=== PATIENT | male | born 1945 | race Caucasian/White ===

== ENCOUNTER 2019-01-06 04:14 | Inpatient (IN) | payer MEDICARE, BC ==
[~2019-01-06] VITALS: Ht 170.2 cm; Wt 110.0 kg
[~2019-01-06 04:14] MED LIST: ALBU90OI61 INH; AMIT25 PO; ANDRODERM1 EAC1 TD; ANDROGEL; ASCO500; ASPI325; ASPI325 PO; ATEN50; BUPR100 PO; BUPR150ERA; CALCAVITDA PO; CYAN1000 PO; DIPH50 PO; ESCI10 PO; Elemental Calc600 MG PO; FENO145 PO; FLUO.05TO; FURO40 PO; Fluocinonide15 GM TOP; GABA300 PO; GEMF600; GEMF600 PO; GLIM4; GLIM4 PO; HYDACE5 PO; HYDCOR10; Hair, Skin & N1 EACH PO; Humalog Mi100 UNIT/4 SC; INSLI100I; INSLIS75I; INSUASPI SC; INSULANI; INSULANI SC; INSULANPEN SC; IRBE150 PO; L-THYROXINE PO; LEVFLO250 PO; LEVSOD100 PO; LEVSOD112; LISPRO; LOPE2C PO; LOVA40 PO; METF500; MORP30ER PO; MULVITMIND PO; ONDA4ODT MM; OXYC15ER PO; OXYC1TAB11 PO; POTA10T PO; PRED5; PRED5 PO; PREG150 PO; PROM25S PR; RANI150 PO; TOUJEO SOL300 UNIT/1; TRAZ150T57 PO; VALS80; VITAMIN D5000 UNI1 PO; Zofran Odt4 MG SL; Zovirax800 MG PO; [UNRECOGNIZED DRUG - OTHER]
[2019-01-06 04:34] LABS: BASOPHILS ABSOLUTE AUTO 0.19 K/mm3 (0.00-0.23); BASOPHILS PERCENT AUTO 1 % (0-2); EOSINOPHILS ABSOLUTE AUTO 0.39 K/mm3 (0.00-0.68); EOSINOPHILS PERCENT AUTO 3 % (0-6); Hematocrit 48.5 % (37.0-53.0); Hemoglobin 15.5 g/dL (13.5-17.5); Mean Corpuscular HGB 27.7 pg (26.0-34.0); Mean Corpuscular Volume 87 fL (80-100); Mean Platelet Volume 8.8 fL (9.1-12.4); Platelet Count 279 K/mm3 (150-400); RDW Coefficient Variation 12.8 % (11.7-14.2); RDW Standard Deviation 40.6 fL (35.1-46.3); White Blood Cell Count 15.91 K/mm3 (4.00-11.30)
[2019-01-06 04:39] LABS: IMMATURE GRAN ABSOLUTE AUTO 0.06 K/mm3 (0.00-0.10); IMMATURE GRAN PERCENT AUTO 0 % (0-1); LYMPHOCYTES ABSOLUTE AUTO 7.31 K/mm3 (0.84-5.20); LYMPHOCYTES PERCENT AUTO 46 % (21-46); MONOCYTES ABSOLUTE AUTO 1.65 K/mm3 (0.16-1.47); MONOCYTES PERCENT AUTO 10 % (4-13); NEUTROPHILS ABSOLUTE AUTO 6.31 K/mm3 (1.96-9.15); NEUTROPHILS PERCENT AUTO 40 % (41-73)
[2019-01-06 04:40] LABS: Calcium, Ionized (POC) 1.09 mmol/L (1.10-1.46); Chloride (POC) 103 mmol/L (98-108); Creatinine (POC) 1.8 mg/dL (0.8-1.3); Glucose (ISTAT POC) 201 mg/dL (70-99); Potassium (POC) 3.8 mmol/L (3.5-5.5); Sodium (POC) 138 mmol/L (135-148); Total CO2 (POC) 24 mmol/L (21-32)
[2019-01-06] MEDS ORDERED: AMIT25 PO (04:45)
[2019-01-06] MEDS ORDERED: ERGO400 PO (04:47)
[2019-01-06] MEDS ORDERED: FURO40 PO (04:47)
[2019-01-06] MEDS ORDERED: GLIM4 PO (04:48)
[2019-01-06] MEDS ORDERED: SOLU-CORTE100 MG/2 M IM (04:49)
[2019-01-06] MEDS ORDERED: IRBE150 PO (04:50)
[2019-01-06 04:51] LABS: PCO2 Arterial 43.2 mmHg (35-45); PO2 Arterial 67.4 mmHg (80-100); pH Blood Arterial 7.38 (7.35-7.45)
[2019-01-06] MEDS ORDERED: SUBOXONE 4 MG-1 EACH (04:51)
[2019-01-06] MEDS ORDERED: NAPR500ERA PO (04:52)
[2019-01-06 04:53] LABS: Alanine Aminotransfer (ALT/SGP 31 U/L (12-78); Albumin, Blood 2.9 g/dL (3.4-5.0); Albumin/Globulin Ratio 0.7 (0.8-1.8); Alk Phos 81 U/L (50-136); Anion Gap 11 mmol/L (6-16); Aspartate Aminotrans (AST/SGOT 22 U/L (12-37); Bilirubin, Total 0.8 mg/dL (0.1-1.0); Blood Urea Nitrogen 13 mg/dL (8-24); CO2, Blood 24 mmol/L (21-32); Calcium, Blood 8.8 mg/dL (8.5-10.1); Chloride, Blood 105 mmol/L (98-108); Creatinine, Blood 1.63 mg/dL (0.60-1.20); Globulin, Blood 4.2 g/dL (2.2-4.0); Glomerular Filtration Rate 45 (60-); Glucose, Blood 194 mg/dL (70-99); Potassium, Blood 3.9 mmol/L (3.5-5.5); Sodium, Blood 140 mmol/L (136-145); Total Protein, Blood 7.1 g/dL (6.4-8.2); Troponin I <0.015 ng/mL (0.000-0.040)
[2019-01-06] MEDS ORDERED: Gas-X125 MG PO (14:16)
--- NOTE | 2019-01-06 19:41 | NUR ---
ADMIT NOTE/SHIFT SUMMARY PT TO ROOM AT 0730. PT AND SPOUSE ORIENTED TO ROOM AND CALL LIGHT. PT/SPOUSE EDUCATED ON FALL RISK AND HR ROUNDING. SPOUSE REPORTS ADRIANNA HAS BEEN TAKING ANTIBIOTICS AT HOME FOR RLE CELLULITIS, REDNESS 3RD AND 4TH TOES, PICTURES TAKEN. PT HAS SCATTERED SCABS ON BLE, PICTURES TAKEN. PT A&Ox3, CONFUSED AND FORGETFUL AT TIMES. CONCRETE. FLAT AFFECT. PT REPORTS CHRONIC BACK PAIN "NOT TOO BAD", MEDICATED x1 WITH SUBOXONE. PT SOB WITH EXERTION, ADMITTED TO UNIT ON 3L O2 VIA NC, SPOUSE BROUGHT IN HOME BIPAP AND HAS BEEN WHERE T/O SHIFT. LS DIM IN BASES. AT REST, WITH BIPAP, BREATHING EVEN AND UNLABORED, SPO2 >92%. PT DENIES NAUSEA, SPOUSE REPORTS HE HAS EATEN MORE TODAY THEN THE LAST COUPLE OF DAYS. PT HAS 3,120 CC OF NS FOR SEPSIS PROTOCOL, CLARIFIED ORDER WITH DR ROA, OK TO INCLUDING 1L NS GIVEN UB ED IN TOTAL. PT RECEIVING IV ANTIBIOTICS. PT DENIES N/T DURING SHIFT ASSESSMENTS, STATING "IT COMES AND GOES". VSS. NO OTHER ACUTE CHANGES NOTED DURING SHIFT. REPORT GIVEN TO ONCOMING RN
[2019-01-07 03:52] LABS: BASOPHILS ABSOLUTE AUTO 0.09 K/mm3 (0.00-0.23); BASOPHILS PERCENT AUTO 1 % (0-2); EOSINOPHILS ABSOLUTE AUTO 0.24 K/mm3 (0.00-0.68); EOSINOPHILS PERCENT AUTO 2 % (0-6); Hematocrit 40.8 % (37.0-53.0); Hemoglobin 12.8 g/dL (13.5-17.5); IMMATURE GRAN ABSOLUTE AUTO 0.05 K/mm3 (0.00-0.10); IMMATURE GRAN PERCENT AUTO 0 % (0-1); LYMPHOCYTES ABSOLUTE AUTO 2.49 K/mm3 (0.84-5.20); LYMPHOCYTES PERCENT AUTO 22 % (21-46); MONOCYTES ABSOLUTE AUTO 1.04 K/mm3 (0.16-1.47); MONOCYTES PERCENT AUTO 9 % (4-13); Mean Corpuscular HGB 27.9 pg (26.0-34.0); Mean Corpuscular HGB Conc 31.4 g/dL (31.5-36.5); Mean Corpuscular Volume 89 fL (80-100); Mean Platelet Volume 8.7 fL (9.1-12.4); NEUTROPHILS ABSOLUTE AUTO 7.32 K/mm3 (1.96-9.15); NEUTROPHILS PERCENT AUTO 65 % (41-73); Platelet Count 213 K/mm3 (150-400); RDW Coefficient Variation 13.2 % (11.7-14.2); RDW Standard Deviation 43.1 fL (35.1-46.3); Red Blood Cell Count 4.59 M/mm3 (4.30-5.90); White Blood Cell Count 11.23 K/mm3 (4.00-11.30)
[2019-01-07 04:09] LABS: Bun/Creatinine Ratio 8.8 (12.0-20.0); Calcium, Blood 7.8 mg/dL (8.5-10.1); Creatinine, Blood 2.27 mg/dL (0.60-1.20); Potassium, Blood 5.1 mmol/L (3.5-5.5)
--- NOTE | 2019-01-07 08:00 | NUR ---
pt laying in bed with cpap in place on cpap from home, at bedside. he wakes easily. takes po medications without diff, a/ox3, but has periodic confusion, cooperative with care, follows commands well, lungs are clear in [place], dim in bases, resp even and unlabored, no cough noted, hrr, tele in place running sr per monitor, see strip, trace edema noted to b/l le, ppp+1, cap refill <3sec, vs stable, afebrile, iv site is clear and patent, infusing ns as ordered, btx4, abd flat soft nontender, voids via urinal and has attends in place, skin has scabs to b/l le, pix in chart, lorenzo obrien, call light in reach.
[2019-01-07 09:30] LABS: Vancomycin, Trough 12.4 ug/mL (5.0-10.0)
--- NOTE | 2019-01-07 11:39 | NUR ---
pt resting in bed with cpap in place, napping unless disturbed. states he's doing ok. at bedside, call light in reach.
--- NOTE | 2019-01-07 18:20 | NUR ---
PT UP TO CHAIR FOR A WHILE TODAY, HAS SLEPT MOST OF THE DAY, STATES HE'S FEELING BETTER, NO FURTHER CHANGES THIS SHIFT, CALL LIGHT IN REACH.
[2019-01-08 03:50] LABS: BASOPHILS ABSOLUTE AUTO 0.09 K/mm3 (0.00-0.23); BASOPHILS PERCENT AUTO 1 % (0-2); EOSINOPHILS ABSOLUTE AUTO 0.34 K/mm3 (0.00-0.68); EOSINOPHILS PERCENT AUTO 4 % (0-6); Hematocrit 39.4 % (37.0-53.0); Hemoglobin 12.3 g/dL (13.5-17.5); IMMATURE GRAN ABSOLUTE AUTO 0.01 K/mm3 (0.00-0.10); IMMATURE GRAN PERCENT AUTO 0 % (0-1); LYMPHOCYTES ABSOLUTE AUTO 2.67 K/mm3 (0.84-5.20); LYMPHOCYTES PERCENT AUTO 28 % (21-46); MONOCYTES ABSOLUTE AUTO 0.77 K/mm3 (0.16-1.47); MONOCYTES PERCENT AUTO 8 % (4-13); Mean Corpuscular HGB Conc 31.2 g/dL (31.5-36.5); Mean Corpuscular Volume 90 fL (80-100); Mean Platelet Volume 8.6 fL (9.1-12.4); NEUTROPHILS PERCENT AUTO 60 % (41-73); Platelet Count 222 K/mm3 (150-400); RDW Coefficient Variation 13.2 % (11.7-14.2); RDW Standard Deviation 43.3 fL (35.1-46.3); White Blood Cell Count 9.58 K/mm3 (4.00-11.30)
[2019-01-08 04:06] LABS: Bun/Creatinine Ratio 9.5 (12.0-20.0); Calcium, Blood 8.1 mg/dL (8.5-10.1); Creatinine, Blood 2.01 mg/dL (0.60-1.20); Potassium, Blood 4.7 mmol/L (3.5-5.5)
--- NOTE | 2019-01-08 04:43 | NUR ---
SHIFT SUMMARY PT A&O X4 T/O SHIFT. PT STS HE FELT HE IS "CLEARING UP" IN REGARDS TO MENTATION. SBA WITH FWW TO BSC AND TO USE URNINAL. CONT. OX IN PLACE WITH O2 SATS GREATER THEN 92%; PT DENIES SOB. CPAP WITH 3L O2 BLEED WHILE ASLEEP. AREA OF REDNESS TO R FOOT OUTLINED WITH DATE AND TIME. PT REQUESTED REMOVAL OF SCD'S; EDUCATION ON DVT PREVENTION, PT STS UNDERSTANDING. IV GTT PER EMAR ORDER. SIDE RAILS X3 FOR SAFETY. CALL LIGHT IN REACH; PT DEMONSTRATES USE. WCTM UNTIL REPORT TO DAY SHIFT RN.
--- NOTE | 2019-01-08 11:13 | NUR ---
PT LAYING IN BED AWAKE A/OX3, IN ROOM, PLEASANT AND COOPERATIVE WITH CARE, FOLLOWS COMMANDS WELL, DENIES PAIN, STATES HE'S FEELING PRETTY GOOD, LUNGS ARE CLEAR T/O, RESP EVEN AND UNLABORED, IS ON R/A WHEN OFF CPAP, SATS REMAIN IN 90'S, NO COUGH NOTED, HRR, TELE IN PLACE RUNNING SR PER MONITOR, SEE STRIP, TRACE TO +1 EDEMA NOTED TO B/L LE, PPP FAINT, CAP REFILL <3SEC, VS STABLE AFEBRILE, IV SITE IS CLEAR AND PATENT, BTX4, ABD FLAT SOFT NONTENDER, VOIDS VIA URINAL, AND HAS ATTENDS IN PLACE, SKIN HAS RED TOES TO RIGHT FOOT, LATERAL ASPECT, IS OUTLINED, SCABS TO B/L ALAN CAUSEY, WEAK, SLOAN, CALL LIGHT IN REACH.
[2019-01-08] MEDS ORDERED: AMIT50 PO (14:30)
[2019-01-08] MEDS ORDERED: SUBOXONE 8 MG-1 EACH SL (14:31)
[2019-01-08] MEDS ORDERED: FURO40 PO (14:33)
[2019-01-08] MEDS ORDERED: AMOCLA875 PO (14:42)
[2019-01-08] MEDS ORDERED: Bactrim Ds Tab1 EACH PO (14:58)
--- NOTE | 2019-01-08 15:30 | NUR ---
PT WAS SEEN BY DR. ROA, SHE DISCHARGED HIM TO HOME, WENT OVER DISCHARGE INSTRUCTIONS WITH THEM THEY VERBALIZED UNDERSTANDING, IV REMOVED INTACT, NEW SCRIPT CALLED INTO [facility]. LEFT VIA WHEELCHAIR WITH ASSOCIATE PROFESSOR OF VIOLIN AND IN ATTENDENCE. THEY HAVE ALL BELONGINGS.
== END 2019-01-08 15:32 | disposition home or self-care (01) | DRG 871 ==
LOC: ER 04:14 → PCU 05:04
PROVIDERS: Emergency Medicine; Hospitalist; ADMIT Family Medicine
DX: A41.9 Sepsis, unspecified organism (principal); G93.41 Metabolic encephalopathy; L03.115 Cellulitis of right lower limb; E23.0 Hypopituitarism; N17.9 Acute kidney failure, unspecified; R65.20 Severe sepsis without septic shock; R09.02 Hypoxemia; G47.33 Obstructive sleep apnea (adult) (pediatric); E11.65 Type 2 diabetes mellitus with hyperglycemia; E11.40 Type 2 diabetes mellitus with diabetic neuropathy, unspecified; E78.5 Hyperlipidemia, unspecified; Z88.5 Allergy status to narcotic agent; Z79.84 Long term (current) use of oral hypoglycemic drugs; Z79.1 Long term (current) use of non-steroidal anti-inflammatories (NSAID); Z79.82 Long term (current) use of aspirin; Z79.4 Long term (current) use of insulin; Z79.52 Long term (current) use of systemic steroids; Z79.899 Other long term (current) drug therapy
CPT/HCPCS: 36415; 36600; 71045; 80047; 80048; 80053; 80202; 82803; 82947; 83605; 84484; 85014; 85025; 87040; 93005; 93010; 94640; 94762; 96365; 96367; 96375; 99285-25; A9270; J1720; J1817; J2543; J3370; J7030; J7050; J7512

== ENCOUNTER 2020-03-10 20:41 | Inpatient (IN) | payer MEDICARE, BC ==
[~2020-03-10] VITALS: Ht 175.3 cm; Wt 112.2 kg
[~2020-03-10 20:41] MED LIST changes: +AMIT50 PO; +AMOCLA875 PO; +ANDRODERM1 EAC3 TD; +BENADRYL25 MG PO; +BUPRENORPHINE HC2 MG SL; +Bactrim Ds Tab1 EACH PO; +ERGO400 PO; +EUTHYROX175 MCG PO; +FLUO.01TC; +Gas-X125 MG PO; +HUMALOG100 UNIT/1; +LOSA50 PO; +Lovastatin20 MG PO; +MULTIVITAMINS1 EAC3; +NAPR500ERA PO; +ONDA4 SL; +PRED1 PO; +PROAIR DIGIHAL90 MCG PO; +Ranitidine HCl150 M1 PO; +SOLU-CORTE100 MG/2 M IM; +SUBOXONE 4 MG-1 EACH; +SUBOXONE 8 MG-1 EACH SL; +TRESIBA FL200 UNIT/2 SC; +Vitamin D2000 UNIT PO; +[UNRECOGNIZED DRUG - OTHER]
[2020-03-10 21:05] LABS: Source, Urine Catheter
[2020-03-10 21:13] LABS: Appearance, Urine Hazy (Clear); Bilirubin, Urine Neg (Neg); Blood, Urine 2+ (Neg); Color, Urine Yellow (P-Yellow); Glucose Qualitative, Urine Neg (Neg); Ketones, Urine 1+ (Neg); Leukocyte Esterase, Urine 3+ (Neg); Nitrite, Urine Neg (Neg); Protein, Urine 2+ (Neg); Specific Gravity, Urine 1.015 (1.003-1.022); Urobilinogen, Urine NORM (Normal)
[2020-03-10 21:15] LABS: PCO2 Arterial 47.6 mmHg (35-45); PO2 Arterial 58.7 mmHg (80-100); pH Blood Arterial 7.32 (7.35-7.45)
[2020-03-10 21:21] LABS: BASOPHILS ABSOLUTE AUTO 0.18 K/mm3 (0.00-0.23); BASOPHILS PERCENT AUTO 1 % (0-2); EOSINOPHILS ABSOLUTE AUTO 0.47 K/mm3 (0.00-0.68); EOSINOPHILS PERCENT AUTO 4 % (0-6); Hematocrit 51.4 % (37.0-53.0); Hemoglobin 15.6 g/dL (13.5-17.5); IMMATURE GRAN ABSOLUTE AUTO 0.08 K/mm3 (0.00-0.10); IMMATURE GRAN PERCENT AUTO 1 % (0-1); LYMPHOCYTES ABSOLUTE AUTO 5.73 K/mm3 (0.84-5.20); LYMPHOCYTES PERCENT AUTO 44 % (21-46); MONOCYTES ABSOLUTE AUTO 1.34 K/mm3 (0.16-1.47); MONOCYTES PERCENT AUTO 10 % (4-13); Mean Corpuscular HGB 25.6 pg (26.0-34.0); Mean Corpuscular HGB Conc 30.4 g/dL (31.5-36.5); Mean Corpuscular Volume 84 fL (80-100); Mean Platelet Volume 8.7 fL (9.1-12.4); NEUTROPHILS ABSOLUTE AUTO 5.37 K/mm3 (1.96-9.15); NEUTROPHILS PERCENT AUTO 41 % (41-73); Platelet Count 334 K/mm3 (150-400); RDW Coefficient Variation 13.1 % (11.7-14.2); RDW Standard Deviation 40.3 fL (35.1-46.3); Red Blood Cell Count 6.09 M/mm3 (4.30-5.90); White Blood Cell Count 13.17 K/mm3 (4.00-11.30)
[2020-03-10 21:38] LABS: U Amphetamine Screen Not Detected; U Barbituate Screen Not Detected; U Benzodiazapine Screen Not Detected; U Buprenorphine Screen DETECTED; U Cannabinoids Screen Not Detected; U Cocaine Screen Not Detected; U Methadone Screen Not Detected; U Methamphetamine Screen Not Detected; U Opiates Screen Not Detected; U Oxycodone Screen Not Detected; U Phencyclidine Screen Not Detected; U Propoxyphene Screen Not Detected
[2020-03-10 21:41] LABS: Bacteria Rare /hpf; Red Blood Cells, Urine 0-2 /hpf (0-2); Squamous Epithelial Cells Not Seen /hpf (Few); White Blood Cells, Urine TNTC /hpf (0-5); Yeast/Fungi Urine Mod /hpf
[2020-03-10 21:51] LABS: Alanine Aminotransfer (ALT/SGP 28 U/L (12-78); Albumin, Blood 3.2 g/dL (3.4-5.0); Albumin/Globulin Ratio 0.7 (0.8-1.8); Alk Phos 106 U/L (50-136); Anion Gap 8 mmol/L (6-16); Aspartate Aminotrans (AST/SGOT 23 U/L (12-37); Bilirubin, Total 0.5 mg/dL (0.1-1.0); Blood Urea Nitrogen 10 mg/dL (8-24); Bun/Creatinine Ratio 6.1 (12.0-20.0); CO2, Blood 26 mmol/L (21-32); Chloride, Blood 107 mmol/L (98-108); Creatinine, Blood 1.63 mg/dL (0.60-1.20); Ethanol (Alcohol), Blood, Med <3 mg/dL; Free Thyroxine 0.72 ng/dL (0.70-1.60); Globulin, Blood 4.6 g/dL (2.2-4.0); Glomerular Filtration Rate 44 (60-); Glucose, Blood 214 mg/dL (70-99); Potassium, Blood 3.6 mmol/L (3.5-5.5); Sodium, Blood 141 mmol/L (136-145); Total Protein, Blood 7.8 g/dL (6.4-8.2); Triiodothyronine, Free 1.77 pg/mL (2.18-3.98); Troponin I <0.015 ng/mL (0.000-0.040)
[2020-03-11 03:10] LABS: BASOPHILS PERCENT AUTO 2 % (0-2); EOSINOPHILS ABSOLUTE AUTO 0.53 K/mm3 (0.00-0.68); EOSINOPHILS PERCENT AUTO 4 % (0-6); Hematocrit 48.7 % (37.0-53.0); Hemoglobin 14.8 g/dL (13.5-17.5); IMMATURE GRAN ABSOLUTE AUTO 0.07 K/mm3 (0.00-0.10); IMMATURE GRAN PERCENT AUTO 1 % (0-1); LYMPHOCYTES ABSOLUTE AUTO 4.54 K/mm3 (0.84-5.20); LYMPHOCYTES PERCENT AUTO 36 % (21-46); MONOCYTES ABSOLUTE AUTO 1.49 K/mm3 (0.16-1.47); MONOCYTES PERCENT AUTO 12 % (4-13); Mean Corpuscular HGB 25.9 pg (26.0-34.0); Mean Corpuscular HGB Conc 30.4 g/dL (31.5-36.5); Mean Corpuscular Volume 85 fL (80-100); Mean Platelet Volume 8.9 fL (9.1-12.4); NEUTROPHILS ABSOLUTE AUTO 5.81 K/mm3 (1.96-9.15); NEUTROPHILS PERCENT AUTO 46 % (41-73); Platelet Count 273 K/mm3 (150-400); RDW Coefficient Variation 13.2 % (11.7-14.2); RDW Standard Deviation 40.8 fL (35.1-46.3); Red Blood Cell Count 5.72 M/mm3 (4.30-5.90); White Blood Cell Count 12.64 K/mm3 (4.00-11.30)
[2020-03-11 03:27] LABS: Bun/Creatinine Ratio 6.7 (12.0-20.0); Calcium, Blood 9.1 mg/dL (8.5-10.1); Creatinine, Blood 1.63 mg/dL (0.60-1.20); Potassium, Blood 3.6 mmol/L (3.5-5.5)
--- NOTE | 2020-03-11 06:44 | NUR ---
SHIFT SUMMARY PT ARRIVED TO UNIT IN STABLE CONDTION. FIRST BAG OF LR INFUSING. PT LETHARGIC AND NOT ANSWERING QUESTIONS WELL, HAD TO KEEP WAKING UP PT TO TALK AND ANSWER QUESTIONS. PT BECAME MORE RESPONSIVE T/O THE NIGHT AND WAS BETTER ABLE TO ANSWER QUESTIONS. BP RANGE 130-149 SYSTOLIC WITH HR ABOVE 100. PT WAS OFF O2 UPON ARRIVAL, TRANSFERED SELF TO BED, O2 SATS IN THE LOW 90'S DROPPING INTO THE 80'S. PT PLACED ON 2 LPM NC THEN ON HOME CPAP WITH 02 SATS STEADY IN THE MID 90'S. LACTIC ACID UPON ARRIVAL WAS 3.2, MORNING LABS SHOWED LACTIC ACID AT 3.1. PT WAS NAUSEOUS UPON ARRIVAL BUT DENIED ZOFRAN, DID NOT VOMIT. INFUSED 2200ML OF LR AND PT HAS BEEN NPO T/O SHIFT. PT STATED LIMITED FEELING AND TINGLING IN LOWER LIMBS DUE TO DIABETIC NEUROPATHY. PT WAS A POOR HISTORIAN FOR PAST MEDICAL HISTORY BUT WAS SEEMINGLY MORE ALERT BY END OF SHIFT. PT STABLE, WILL CONTINUE TO MONITOR UNTIL SHIFT CHANGE.
[2020-03-11 17:35] LABS: PCO2 Arterial 46.2 mmHg (35-45); PO2 Arterial 76.7 mmHg (80-100); pH Blood Arterial 7.35 (7.35-7.45)
--- NOTE | 2020-03-11 18:23 | NUR ---
PATIENT SLEPT FOR MOST OF SHIFT, REFUSED LUNCH. PATIENT WOKE SHORTLY BEFORE DINNER, ORIENTED TO SELF ONLY. PATIENT HAD NASAL CPAP APPLIED FOR ENTIRE SHIFT. PATIENT STARTED DRY HEAVING, PATIENT REQURIED REDIRECTION IN ORDER TO PREVENT FALL, BED ALARM REMAINS ON WHEN PATIENT IN BED LAYING OR SITTING. PATIENT'S AT BEDSIDE. PATIENT ABLE TO HAVE SMALL BOWEL MOVEMENT AT BEDSIDE COMMODE. PATIENT'S O2 NEEDS INCREASED FROM MAINTAINING O2 SATS LOW 90S AT 7L BLEED IN, AFTER WAKING AND AT TIME OF CONFUSION EPISODE PATIENT DESATTED TO MID 80S. BLEED IN TURNED UP TO 9L TO MAINTAIN O2 SAT OF 88-91%. DR. ASENCIO NOTIFIED, ORDERS FOR ABG GIVEN. PATIENT'S CO2 AND O2 IMPROVED SINCE ADMISSION.
--- NOTE | 2020-03-11 19:46 | NUR ---
PT REFUSING TO GO TO CT SCAN AT THIS TIME. EDUCATION PROVIDED. PT STILL REFUSING.
--- NOTE | 2020-03-11 22:19 | NUR ---
ASSUMED CARE @ 1900 PT RESTING IN BED, USING CPAP WITH 7L O2 AT START OF SHIFT. RESPONDING TO VERBAL STIMULI AT TIMES, OTHER TIMES DOES NOT ANSWER QUESTIONS. ALERT AT TIMES, OTHERWISE HAS BEEN LETHARGIC. PT SWITCHED TO O2 NC FOR CT SCAN, BUT THEN REFUSED CT SCAN. WHEN ASKED WHY, PATIENT SAID HE "DOESN'T THINK HE WILL FIT IN THE CT MACHINE AND DOES NOT WANT TO GO". PT ALSO REFUSED TO GO BACK ON CPAP, AND HAS BEEN USING O2 NC SINCE. O2 STABLE AROUND 92-94%; BIOX IN PLACE. RESTING WITH CALL LIGHT IN PLACE AT THIS TIME.
--- NOTE | 2020-03-12 06:00 | NUR ---
SHIFT SUMMARY PT HAS BEEN VERY SLEEPY/LETHARGIC MOST OF THE NIGHT WITH PERIODS OF ALERTNESS. CAN TELL WHERE HE IS, , FAMILY, BUT UNABLE TO STATE DATE. PT REFUSED CT SCAN AT START OF SHIFT. AROUND 0530 PT CALLED, REQUESTED TO USE BSC. AT THIS TIME PT WAS ORIENTED AND ONLY NEEDED SBA TO COMMODE. IV FLUIDS INFUSING OVERNIGHT PER ORDERS. PT RESTING IN BED AT THIS TIME, CALL LIGHT IN REACH. O2 SAT IN MID 90'S USING 3-4L O2 NC.
[2020-03-12 06:03] LABS: Hematocrit 47.1 % (37.0-53.0); Hemoglobin 14.2 g/dL (13.5-17.5); Mean Corpuscular HGB 26.2 pg (26.0-34.0); Mean Corpuscular HGB Conc 30.1 g/dL (31.5-36.5); Mean Corpuscular Volume 87 fL (80-100); Mean Platelet Volume 8.9 fL (9.1-12.4); Platelet Count 324 K/mm3 (150-400); RDW Coefficient Variation 13.3 % (11.7-14.2); RDW Standard Deviation 41.8 fL (35.1-46.3); Red Blood Cell Count 5.43 M/mm3 (4.30-5.90); White Blood Cell Count 10.79 K/mm3 (4.00-11.30)
[2020-03-12 06:20] LABS: Albumin, Blood 2.7 g/dL (3.4-5.0); Anion Gap 7 mmol/L (6-16); Blood Urea Nitrogen 10 mg/dL (8-24); Bun/Creatinine Ratio 5.5 (12.0-20.0); CO2, Blood 27 mmol/L (21-32); Calcium, Blood 8.7 mg/dL (8.5-10.1); Chloride, Blood 108 mmol/L (98-108); Creatinine, Blood 1.82 mg/dL (0.60-1.20); Glomerular Filtration Rate 39 (60-); Glucose, Blood 212 mg/dL (70-99); Phosphorus, Blood 2.7 mg/dL (2.5-4.9); Potassium, Blood 4.1 mmol/L (3.5-5.5); Sodium, Blood 142 mmol/L (136-145)
--- NOTE | 2020-03-12 18:20 | NUR ---
SHIFT SUMMARY PT IS ALERT, ORIENTATION IMPROVING, PT IS FORGETFUL. PT HAS BEEN ON 3L NC TODAY AND AFTER ATIVAN FOR CT, PT WAS MORE TIRED AND REQUIRED HOME BIPAP MORE THIS AFTERNOON. MONITOR HAS SHOWN PT TO BE IN SINUS RHYTHM, VITALS HAVE BEEN STABLE. CALL LIGHT IN REACH OF PT, BED ALARM IN PLACE FOR SAFETY.
--- NOTE | 2020-03-12 21:51 | NUR ---
1944 PT VERY ANXIOUS AT BEGINNING OF SHIFT WITH PATIENT ATTEMPTING CLIMB OOB WITHOUT UTILIZING CALL LIGHT (BED ALARM SOUNDED OFF); PT UP BSC X 2 ASSIST WITH BALANCE UNSTEADY VIA WALKER; PT ASSISTED BACK TO BED AFTER VOIDING AND REPOSITIONED X 2 ASSIST; WEARING O2 AT 3L/M PER NASAL CANNULA.
--- NOTE | 2020-03-13 03:44 | NUR ---
SHIFT SUMMARY: 74 Y/O MORBID OBESE MALE RESTED COMFORTABLY ALL SHIFT WHILE WEARING NASAL BIPAP WITH O2 7L BLEED INTO DEVICE WITH O2 SATS AVERAGING 91%; PT ALERT AND ORIENTED X 2, ABLE TO FOLLOW SIMPLE VERBAL COMMANDS; PT HAS PERIODS OF CONFUSION AT TIMES AND REQUIRED REORIENTATION BY STAFF; DENIES PAIN OR NAUSEA; BED ALARM APPLIED, BED LOW POSITION WITH CALL LIGHT AT SIDE.
--- NOTE | 2020-03-13 09:30 | NUR ---
PT REFUSAL PT REFUSING LAB DRAWS THIS AM
[2020-03-13 15:41] LABS: Albumin, Blood 2.4 g/dL (3.4-5.0); Anion Gap 7 mmol/L (6-16); Blood Urea Nitrogen 7 mg/dL (8-24); Bun/Creatinine Ratio 4.3 (12.0-20.0); CO2, Blood 27 mmol/L (21-32); Calcium, Blood 8.1 mg/dL (8.5-10.1); Chloride, Blood 108 mmol/L (98-108); Creatinine, Blood 1.62 mg/dL (0.60-1.20); Glomerular Filtration Rate 45 (60-); Glucose, Blood 172 mg/dL (70-99); Phosphorus, Blood 1.5 mg/dL (2.5-4.9); Sodium, Blood 142 mmol/L (136-145)
--- NOTE | 2020-03-13 15:42 | NUR ---
PT TRANSFER REPORT GIVEN TO [facility] LINDER ON MEDICAL FLOOR. PT TRANSPORTED BY BED BY [facility] ALEJANDRA AND PCT.
--- NOTE | 2020-03-13 18:44 | NUR ---
SHIFT SUMMARY. PCU TRANSFER TODAY TO MEDICAL FLOOR. PT REPORTS BREATHING HAS IMPROVED SINCE ADMISSION, STILL REQUIRING 3L O2 NC. PT WITH CHRONIC BACK PAIN, MANAGED WITH CURRENT ORDERS. PT DENIES N/V. AT BEDSIDE. NO NEW CHANGES OR CONCERNS.
--- NOTE | 2020-03-14 04:36 | NUR ---
SHIFT SUMMARY: PT A&O X4. VS WNL. PT GIVEN A ONE TIME DOSE OF LASIX+POTASSIUM PHOSPHATE PER ORDERS. O2 >93% ON 3LO2 VIA NC. BIPAP IN PLACE WHILE SLEEPING. DIMINISHED LUNG SOUNDS T/O. VOIDING WELL IN URINAL. PT ABLE TO STAND AT BEDSIDE BUT VERY UNSTEADY WHILE AMBULATING. CALM AND COOPERATIVE WITH CARE. USING CALL LIGHT APPROPRIATLY.
[2020-03-14 05:53] LABS: Albumin, Blood 2.5 g/dL (3.4-5.0); Anion Gap 10 mmol/L (6-16); Blood Urea Nitrogen 6 mg/dL (8-24); Bun/Creatinine Ratio 3.9 (12.0-20.0); CO2, Blood 25 mmol/L (21-32); Calcium, Blood 7.9 mg/dL (8.5-10.1); Chloride, Blood 104 mmol/L (98-108); Creatinine, Blood 1.55 mg/dL (0.60-1.20); Glomerular Filtration Rate 47 (60-); Glucose, Blood 218 mg/dL (70-99); Phosphorus, Blood 1.9 mg/dL (2.5-4.9); Potassium, Blood 4.1 mmol/L (3.5-5.5); Sodium, Blood 139 mmol/L (136-145)
--- NOTE | 2020-03-14 09:49 | NUR ---
Pt resting in bed upon arrival. Pt is A&O and reports feeling better. Mild intermittent confusion noted. Spouse Mary Jo at bedside. Mary Jo reports mentation has improved. Dr Herbert and then Dr Delgado in to examine Pt and discuss plan of care including discharge today. This RN remained behind and provided gentle education on disease process. Educated on the importance of routine conversations with Pt's PCP and developing multiple plans as disease process takes its coarse. Discussed completing POLST with Pt and spouse expressing interest. Educated on life sustaining measures and each section to complete. Offered assistance and spouse denies need. Spoke with Bedside RN Mary Jo and discussed case. Mary Jo will have hospitalist sign POLST once completed and obtain copies. Palliative Care will deliver copy of POLST to medical records once completed.
--- NOTE | 2020-03-14 14:10 | NUR ---
SHIFT SUMMARY PT RESTING QUIETLY ON CPAP DURING SHIFT REPORT. PT SLEEPY AT START OF SHIFT, BUT WOKE UP AFTER CAME IN. PT ORIENTED TO SOME THINGS, BUT ALSO SEEMS VERY CONFUSED AND DISORIENTED AT OTHER TIMES. PER REPORT, PT AT BASELINE. PALLIATIVE CARE IN TO SEE PT AND TO DISCUSS POLST. PT ABLE TO FILL OUT POLST WITH HELP OF . SIGNED BY DR MATA. PALLIATIVE CARE NOTIFIED OF COPIES FOR MEDICAL RECORDS. ORIGINAL GAVE BACK TO PT AND . DR AMLEIDA HERE THIS AM TO CK ON PT. NEW ORDERS PLACED FOR PT/OT AND HOME O2 EVAL. PT TO GO HOME WITH O2 TODAY. PT UP WITH SBA TO BTHRM; SOMEWHAT UNSTEADY. MORBIDLY OBESE. MULTIPLE SCABS ON BLE'S. PT/OT EVALS COMPLETE. D/C ORDERS PLACED. PT DENIES FURTHER NEEDS. CALL LT IN REACH.
[2020-03-14] MEDS ORDERED: GUAI600T33 PO (15:06)
== END 2020-03-14 15:30 | disposition home or self-care (01) | DRG 208 ==
LOC: ER 20:41 → ERHOLD 20:42 → PCU 20:42 → MEDS 03-13 15:37
PROVIDERS: Emergency Medicine; Internal Medicine; Nurse Practitioner Acute Care; Student in an Organized Health Care Education/Training Program; ADMIT Internal Medicine
PROC: 5A1935Z Respiratory Ventilation, Less than 24 Consecutive Hours (ICD-10-PCS; principal; 2020-03-10)
DX: J96.01 Acute respiratory failure with hypoxia (principal); G92 Toxic encephalopathy; J98.11 Atelectasis; B37.49 Other urogenital candidiasis; F11.20 Opioid dependence, uncomplicated; R65.10 Systemic inflammatory response syndrome (SIRS) of non-infectious origin without acute organ dysfunction; Z79.4 Long term (current) use of insulin; I10 Essential (primary) hypertension; Z66 Do not resuscitate; J44.9 Chronic obstructive pulmonary disease, unspecified; Z20.828 Contact with and (suspected) exposure to other viral communicable diseases; Z89.421 Acquired absence of other right toe(s); E66.01 Morbid (severe) obesity due to excess calories; Z68.36 Body mass index [BMI] 36.0-36.9, adult; E11.65 Type 2 diabetes mellitus with hyperglycemia; E03.9 Hypothyroidism, unspecified; G89.29 Other chronic pain; M54.9 Dorsalgia, unspecified; G47.31 Primary central sleep apnea; E83.39 Other disorders of phosphorus metabolism; E87.70 Fluid overload, unspecified; R91.1 Solitary pulmonary nodule; Z99.81 Dependence on supplemental oxygen; F40.240 Claustrophobia; G47.33 Obstructive sleep apnea (adult) (pediatric)
CPT/HCPCS: 36415; 36600; 70450; 71045; 74176; 78580; 80048; 80053; 80069; 81001; 82140; 82803; 82947; 83605; 83880; 84145; 84439; 84443; 84481; 84484; 85025; 85027; 87040; 87086; 93005; 93010; 94640; 94761; 94762; 96365; 96375; 97116; 97161; 97166; 97530; 99285-25; A9270; A9270-GY; A9540; G0480; J0696; J1644; J1940; J2060; J2310; J2405; J7030; J7060; J7120; U0003

== ENCOUNTER → 2020-03-27 | Outpatient (CLI) | payer MEDICARE, BC ==
[~2020-03-27] MED LIST changes: +GUAI600T33 PO
[2020-03-27 19:35] LABS: BASOPHILS ABSOLUTE AUTO 0.21 K/mm3 (0.00-0.23); BASOPHILS PERCENT AUTO 2 % (0-2); EOSINOPHILS ABSOLUTE AUTO 0.24 K/mm3 (0.00-0.68); EOSINOPHILS PERCENT AUTO 2 % (0-6); Hematocrit 45.2 % (37.0-53.0); Hemoglobin 13.9 g/dL (13.5-17.5); IMMATURE GRAN ABSOLUTE AUTO 0.06 K/mm3 (0.00-0.10); IMMATURE GRAN PERCENT AUTO 1 % (0-1); LYMPHOCYTES ABSOLUTE AUTO 2.31 K/mm3 (0.84-5.20); LYMPHOCYTES PERCENT AUTO 20 % (21-46); MONOCYTES ABSOLUTE AUTO 0.89 K/mm3 (0.16-1.47); MONOCYTES PERCENT AUTO 8 % (4-13); Mean Corpuscular HGB 27.1 pg (26.0-34.0); Mean Corpuscular HGB Conc 30.8 g/dL (31.5-36.5); Mean Corpuscular Volume 88 fL (80-100); Mean Platelet Volume 11.3 fL (9.1-12.4); NEUTROPHILS ABSOLUTE AUTO 8.11 K/mm3 (1.96-9.15); NEUTROPHILS PERCENT AUTO 69 % (41-73); Platelet Count 292 K/mm3 (150-400); RDW Coefficient Variation 13.9 % (11.7-14.2); Red Blood Cell Count 5.12 M/mm3 (4.30-5.90); White Blood Cell Count 11.82 K/mm3 (4.00-11.30)
[2020-03-27 20:46] LABS: Albumin, Blood 3.1 g/dL (3.4-5.0); Albumin/Globulin Ratio 0.8 (0.8-1.8); Bilirubin, Total 0.4 mg/dL (0.1-1.0); Bun/Creatinine Ratio 15.2 (12.0-20.0); Calcium, Blood 9.2 mg/dL (8.5-10.1); Creatinine, Blood 1.51 mg/dL (0.60-1.20); Potassium, Blood 4.8 mmol/L (3.5-5.5); Total Protein, Blood 7.1 g/dL (6.4-8.2)
== END | disposition home or self-care (01) ==
LOC: LAB 17:33 → LAB SHORT 17:33
PROVIDERS: Hospitalist
DX: J96.01 Acute respiratory failure with hypoxia (principal); N30.00 Acute cystitis without hematuria; G93.41 Metabolic encephalopathy
CPT/HCPCS: 80053; 85025; 87086

== ENCOUNTER 2020-11-05 10:50 | Inpatient (IN) | payer MEDICARE, BC ==
[~2020-11-05] VITALS: Ht 175.3 cm; Wt 119.3 kg
[~2020-11-05 10:50] MED LIST changes: +ALBU90OI INH; +GVOKE HYPO1 MG/0.21 SC; -HUMALOG100 UNIT/1; +HUMALOG100 UNIT/1 SC; -MULTIVITAMINS1 EAC3; +ONE DAILY MUL400 MCG PO; -PROAIR DIGIHAL90 MCG PO; -[UNRECOGNIZED DRUG - OTHER]
[2020-11-05 11:54] LABS: Source, Urine Voided
[2020-11-05 12:06] LABS: Appearance, Urine Clear (Clear); Bilirubin, Urine Neg (Neg); Blood, Urine 4+ (Neg); Color, Urine Yellow (P-Yellow); Glucose Qualitative, Urine Neg (Neg); Ketones, Urine 1+ (Neg); Leukocyte Esterase, Urine 1+ (Neg); Nitrite, Urine Neg (Neg); Protein, Urine 2+ (Neg); Urobilinogen, Urine NORM (Normal)
[2020-11-05 12:10] LABS: BASOPHILS ABSOLUTE AUTO 0.12 K/mm3 (0.00-0.23); BASOPHILS PERCENT AUTO 1 % (0-2); EOSINOPHILS ABSOLUTE AUTO 0.07 K/mm3 (0.00-0.68); EOSINOPHILS PERCENT AUTO 1 % (0-6); Hematocrit 43.1 % (37.0-53.0); Hemoglobin 13.7 g/dL (13.5-17.5); IMMATURE GRAN ABSOLUTE AUTO 0.12 K/mm3 (0.00-0.10); IMMATURE GRAN PERCENT AUTO 1 % (0-1); LYMPHOCYTES ABSOLUTE AUTO 4.64 K/mm3 (0.84-5.20); LYMPHOCYTES PERCENT AUTO 30 % (21-46); MONOCYTES ABSOLUTE AUTO 1.25 K/mm3 (0.16-1.47); MONOCYTES PERCENT AUTO 8 % (4-13); Mean Corpuscular HGB 27.8 pg (26.0-34.0); Mean Corpuscular HGB Conc 31.8 g/dL (31.5-36.5); Mean Corpuscular Volume 87 fL (80-100); Mean Platelet Volume 9.2 fL (9.1-12.4); NEUTROPHILS ABSOLUTE AUTO 9.27 K/mm3 (1.96-9.15); NEUTROPHILS PERCENT AUTO 60 % (41-73); Platelet Count 221 K/mm3 (150-400); RDW Coefficient Variation 14.4 % (11.7-14.2); RDW Standard Deviation 46.4 fL (35.1-46.3); Red Blood Cell Count 4.93 M/mm3 (4.30-5.90); White Blood Cell Count 15.47 K/mm3 (4.00-11.30)
[2020-11-05 12:14] LABS: Albumin, Blood 2.6 g/dL (3.4-5.0); Albumin/Globulin Ratio 0.6 (0.8-1.8); Bilirubin, Total 0.4 mg/dL (0.1-1.0); Calcium, Blood 8.6 mg/dL (8.5-10.1); Creatinine, Blood 1.8 mg/dL (0.60-1.20); Potassium, Blood 3.6 mmol/L (3.5-5.5); Total Protein, Blood 6.6 g/dL (6.4-8.2)
[2020-11-05 12:29] LABS: Bacteria Rare /hpf; Squamous Epithelial Cells Rare /hpf (Few)
--- NOTE | 2020-11-05 19:26 | NUR ---
SHIFT SUMMARY PT IS AO TO SELF AND RESPONDS TO VERBAL STIMULI. PT C/O PAIN IN ABD WHEN PALPATED. PT DENIES N/V, SOB. PT IS ON HOME BIPAP WITH 5 L O2. PT IS ONE PERSON ASSIST WITH FWW. PT HAS POOR INTAKE AND ONLY WANTS TO SLEEP. PT NEEDS CUEING FOR ACTIVITIES. PT HAD ABD XR THIS DEDE FOR DISTENTION. PT'S IN THIS DEDE TO VISIT. PLAN IS TO TREAT SEPSIS. PT IS IN BED, CALL LIGHT IN REACH, ALARM ON.
--- NOTE | 2020-11-06 04:39 | NUR ---
SHIFT SUMMARY- PT. VERY IMPULSIVE DURING THE NIGHT, CONFUSED AND NOT DIRECTABLE. GETTING UP OOB TO URINATE ON THE FLOOR MULTIPLE TIMES LAST NIGHT, PULLING OFF OXIMETRY AND BIPAP. NO COMPLAINTS OF PAIN, PT. SPIT UP IN BED AND APPEARED TO HAVE UPSET STOMACH. MEDICATED WITH ZOFRAN FOR COMFORT. PT. ASLEEP ON/OFF LAST NIGHT, NO APPARENT DISTRESS NOTED. VSS. CALL LIGHT WITHIN REACH, SIDE RAILS UPX2, AND BED ALARM ON. WILL CONT TO MONITOR.
[2020-11-06 05:17] LABS: Hematocrit 47.1 % (37.0-53.0); Hemoglobin 14.3 g/dL (13.5-17.5); Mean Corpuscular HGB 26.9 pg (26.0-34.0); Mean Corpuscular HGB Conc 30.4 g/dL (31.5-36.5); Mean Corpuscular Volume 89 fL (80-100); Mean Platelet Volume 8.7 fL (9.1-12.4); Platelet Count 199 K/mm3 (150-400); RDW Coefficient Variation 14.4 % (11.7-14.2); Red Blood Cell Count 5.31 M/mm3 (4.30-5.90); White Blood Cell Count 14.33 K/mm3 (4.00-11.30)
[2020-11-06 05:39] LABS: Bun/Creatinine Ratio 8.6 (12.0-20.0); Calcium, Blood 8.3 mg/dL (8.5-10.1); Creatinine, Blood 1.62 mg/dL (0.60-1.20); Potassium, Blood 3.9 mmol/L (3.5-5.5)
--- NOTE | 2020-11-06 17:35 | NUR ---
DR MATA ORDERED CT. PT REFUSED WHEN CART ARRIVED FOR TRANSPORT TO CT. PT STATED HE HAS HAD LOTS OF THEM AND DOES NOT FIT WELL AND GETS CLAUSTROPHOBIC. WAS PRESENT AND PT'S REFUSAL WAS REPORTED TO DR MATA.
--- NOTE | 2020-11-06 17:38 | NUR ---
PT AOX2 IN THE AM AND HAS IMPROVED TO AOX3 WITH AT BEDSIDE. PT HAS BEEN STANDING TO VOID. PT WAS NOT USING URINAL LAST NIGHT, BUT HAS BEEN USING URINAL WITH HELP THROUGHOUT TODAY. PT HAS BEEN NAPPING WITH HOME CPAP ON 5L ALL DAY. PT WAS GIVEN ALL MEDS PER EMAR. PT STATES HE JUST DOES NOT FEEL WELL WILL CONTINUE TO MONITOR.
[2020-11-07 05:18] LABS: Hemoglobin 11.9 g/dL (13.5-17.5); Mean Corpuscular HGB Conc 31.3 g/dL (31.5-36.5); Mean Corpuscular Volume 86 fL (80-100); Platelet Count 203 K/mm3 (150-400); RDW Coefficient Variation 14.3 % (11.7-14.2); RDW Standard Deviation 45.6 fL (35.1-46.3); Red Blood Cell Count 4.41 M/mm3 (4.30-5.90)
[2020-11-07 05:35] LABS: Anion Gap 9 mmol/L (6-16); Blood Urea Nitrogen 17 mg/dL (8-24); Bun/Creatinine Ratio 12.2 (12.0-20.0); CO2, Blood 24 mmol/L (21-32); Calcium, Blood 7.2 mg/dL (8.5-10.1); Chloride, Blood 107 mmol/L (98-108); Creatinine, Blood 1.39 mg/dL (0.60-1.20); Glomerular Filtration Rate 53 (60-); Glucose, Blood 165 mg/dL (70-99); Phosphorus, Blood 1.8 mg/dL (2.5-4.9); Potassium, Blood 4.2 mmol/L (3.5-5.5); Sodium, Blood 140 mmol/L (136-145)
--- NOTE | 2020-11-07 06:05 | NUR ---
SHIFT SUMMARY PATIENT ALERT AND ORIENTED X3. WAS MEDICATED PER EMAR FOR PAIN AND NAUSEA. NO COMPLAINTS OF SHORTNESS OF BREATH. PATIENT SLEPT WELL OVERNIGHT. NO ACUTE ISSUES NOTED. IV PATENT AND FLUSHED. BED IN LOWEST POSITION WITH WHEELS LOCKED AND ALARM ON. CALL LIGHT WITHIN REACH. REPORT GIVEN TO ONCOMING RN.
--- NOTE | 2020-11-07 18:14 | NUR ---
PT CONTINUES TO HAVE IMPROVED MENTATION. HE IS ABLE TO EXPRESS ANY NEEDS. HE HAS SLEPT MOST OF THE SHIFT. STATED HE HAS A HEADACHE. HE IS ABLE TO AMBULATE TO RESTROOM. NO ACUTE CHANGES.
--- NOTE | 2020-11-07 19:10 | NUR ---
ASSUMED CARE RECEIVED REPORT FROM OBDULIA VALE. PT ASLEEP, IN NAD. NO ACUTE NEEDS ASSESSED AT THIS TIME. CALL LIGHT, POSSESSIONS IN REACH, BED IN LOW AND LOCKED POSITION.
--- NOTE | 2020-11-08 04:10 | NUR ---
COOKER SULFITE SUMMARY PT ASLEEP, IN NAD. NO ACUTE CHANGES IN CONDITION TO REPORT OVERNIGHT. PAIN MANAGED WITH MEDS PER EMAR, WITH EFFECTIVE RELIEF. CONTINUES TO USE BIPAP WITH 5L/O2, O2 SATS >92%. PT REPORTS BREATHING IS IMPROVED. A&OX4, CALLS APPROPRIATELY TO MAKE NEEDS KNOWN. NO ACUTE NEEDS ASSESSED AT THIS TIME. CALL LIGHT, POSSESSIONS IN REACH, BED IN LOW AND LOCKED POSITION. WILL CONTINUE TO PROVIDE CARE NEEDED UNTIL REPORT GIVEN TO ONCOMING RN.
[2020-11-08 05:27] LABS: Hematocrit 37.1 % (37.0-53.0); Hemoglobin 11.7 g/dL (13.5-17.5); Mean Corpuscular HGB 27.3 pg (26.0-34.0); Mean Corpuscular HGB Conc 31.5 g/dL (31.5-36.5); Mean Corpuscular Volume 87 fL (80-100); Mean Platelet Volume 8.8 fL (9.1-12.4); Platelet Count 214 K/mm3 (150-400); RDW Coefficient Variation 13.9 % (11.7-14.2); Red Blood Cell Count 4.28 M/mm3 (4.30-5.90)
[2020-11-08 06:24] LABS: Albumin, Blood 2.1 g/dL (3.4-5.0); Albumin/Globulin Ratio 0.6 (0.8-1.8); Bilirubin, Total 0.2 mg/dL (0.1-1.0); Bun/Creatinine Ratio 12.2 (12.0-20.0); Calcium, Blood 7.6 mg/dL (8.5-10.1); Creatinine, Blood 1.31 mg/dL (0.60-1.20); Globulin, Blood 3.8 g/dL (2.2-4.0); Magnesium, Blood 1.7 mg/dL (1.6-2.4); Potassium, Blood 4.1 mmol/L (3.5-5.5); Thyroid Stimulating Hormone 0.203 uIU/mL (0.360-4.800); Total Protein, Blood 5.9 g/dL (6.4-8.2)
--- NOTE | 2020-11-08 18:25 | NUR ---
SHIFT SUMMARY PT HAS BEEN SLEEPING A LOT OF THE SHIFT. PT HAS HAD A GOOD APPETITE AND EATING WELL. MEDICATED FOR BACK PAIN X1 THIS SHIFT. POSSIBLE PLANS FOR DISCHARGE TOMORROW. NO FURTHER COMPLAINTS OR REQUESTS. CALL LIGHT IN REACH. WILL MONITOR AND REPORT TO ONCOMING RN.
[2020-11-09 05:08] LABS: Hematocrit 41.7 % (37.0-53.0); Hemoglobin 13.1 g/dL (13.5-17.5); Mean Corpuscular HGB 26.7 pg (26.0-34.0); Mean Corpuscular HGB Conc 31.4 g/dL (31.5-36.5); Mean Corpuscular Volume 85 fL (80-100); Mean Platelet Volume 8.6 fL (9.1-12.4); Platelet Count 291 K/mm3 (150-400); RDW Coefficient Variation 13.7 % (11.7-14.2); RDW Standard Deviation 42.7 fL (35.1-46.3); White Blood Cell Count 8.23 K/mm3 (4.00-11.30)
--- NOTE | 2020-11-09 05:09 | NUR ---
SHIFT SUMMARY ASSUMED CARE OF PT A 1899. PT IS A/OX4. HEART SOUNDS REGULAR, LUNG SOUNDS CLEAR. PT USE CPAP T/O THE NIGHT. PT IS INDEPENT IN ROOM BUT USED URINAL WHILE IN BED. PT HAS NO NEW COMPLAINTS. CALL LIGHT IN REACH, BED IN LOWEST POSITION.
[2020-11-09 05:36] LABS: Albumin, Blood 2.6 g/dL (3.4-5.0); Albumin/Globulin Ratio 0.6 (0.8-1.8); Bilirubin, Total 0.2 mg/dL (0.1-1.0); Bun/Creatinine Ratio 10.3 (12.0-20.0); Calcium, Blood 8.6 mg/dL (8.5-10.1); Creatinine, Blood 1.36 mg/dL (0.60-1.20); Globulin, Blood 4.6 g/dL (2.2-4.0); Magnesium, Blood 1.8 mg/dL (1.6-2.4); Potassium, Blood 4.3 mmol/L (3.5-5.5); Total Protein, Blood 7.2 g/dL (6.4-8.2)
[2020-11-09] MEDS ORDERED: ALBU2.5V5 INH (12:16)
[2020-11-09] MEDS ORDERED: FURO20 PO (12:22)
[2020-11-09] MEDS ORDERED: LEVFLO500 PO (12:23)
--- NOTE | 2020-11-09 16:03 | NUR ---
DISCHARGE PT DISCHARGED TO HOME. THIS RN EXPLAINED DISCHARGE INSTRUCTIONS AND MEDICATIONS TO PT AND PT'S SPOUSE. THEY REPORT THEY UNDERSTAND. MEDICATIONS FAXED TO [facility]. BELONGINGS WITH PT. PT TRANSFERRED TO PRIVATE VEHICLE VIA WHEELCHAIR.
== END 2020-11-09 15:26 | disposition home or self-care (01) | DRG 871 ==
LOC: ER 10:50 → MEDS 12:55
PROVIDERS: Emergency Medicine; Internal Medicine; ADMIT Internal Medicine
PROC: 5A09357 Assistance with Respiratory Ventilation, Less than 24 Consecutive Hours, Continuous Positive Airway Pressure (ICD-10-PCS; principal; 2020-11-05)
DX: A41.9 Sepsis, unspecified organism (principal); G92 Toxic encephalopathy; J96.21 Acute and chronic respiratory failure with hypoxia; N39.0 Urinary tract infection, site not specified; F11.20 Opioid dependence, uncomplicated; E66.2 Morbid (severe) obesity with alveolar hypoventilation; Z66 Do not resuscitate; R65.20 Severe sepsis without septic shock; E11.65 Type 2 diabetes mellitus with hyperglycemia; I12.9 Hypertensive chronic kidney disease with stage 1 through stage 4 chronic kidney disease, or unspecified chronic kidney disease; E11.22 Type 2 diabetes mellitus with diabetic chronic kidney disease; Z68.31 Body mass index [BMI] 31.0-31.9, adult; N18.30 Chronic kidney disease, stage 3 unspecified; Z99.81 Dependence on supplemental oxygen; K21.9 Gastro-esophageal reflux disease without esophagitis; E78.5 Hyperlipidemia, unspecified; M54.9 Dorsalgia, unspecified; E03.9 Hypothyroidism, unspecified; G89.29 Other chronic pain; D63.1 Anemia in chronic kidney disease; E89.5 Postprocedural testicular hypofunction; F32.9 Major depressive disorder, single episode, unspecified; J44.9 Chronic obstructive pulmonary disease, unspecified; Z88.5 Allergy status to narcotic agent; Z79.52 Long term (current) use of systemic steroids; Z79.82 Long term (current) use of aspirin; Z79.4 Long term (current) use of insulin; Z85.47 Personal history of malignant neoplasm of testis; Z79.899 Other long term (current) drug therapy; Z89.429 Acquired absence of other toe(s), unspecified side; Z90.89 Acquired absence of other organs; Z90.49 Acquired absence of other specified parts of digestive tract; Z98.890 Other specified postprocedural states; Z92.3 Personal history of irradiation
CPT/HCPCS: 36415; 71045; 74018; 80048; 80053; 80069; 81001; 82947; 83605; 83735; 84145; 84443; 85025; 85027; 87040; 87086; 94762; 96365; 99285-25; A9270; J0696; J1650; J2405; J7030; J7512

== ENCOUNTER → 2022-05-03 | Outpatient (CLI) | payer MEDICARE, BC ==
[~2022-05-03] MED LIST changes: +ALBU2.5V5 INH; +FURO20 PO; +LEVFLO500 PO; +OXYC5 PO
[2022-05-06 12:28] LABS: CHOL/HDL RATIO 4.5; Cholesterol 167 mg/dL (50-200); Free Thyroxine 0.97 ng/dL (0.70-1.60); HDL Cholesterol 37 mg/dL (>39); LDL/HDL RATIO Unable to Calculate; Low Density Lipoprotein Chol Unable to Calculate mg/dL (0-110); Prostate Specific Antigen 0.159 ng/mL (0.000-4.000); Triglycerides 489 mg/dL (30-160); Triiodothyronine, Free 1.23 pg/mL (2.18-3.98); Very Low Density Lipoprot Chol Unable to Calculate mg/dL (6-32)
== END | disposition home or self-care (01) ==
LOC: LAB SHORT 10:40 → LAB 10:40
PROVIDERS: Hospitalist
DX: Z12.5 Encounter for screening for malignant neoplasm of prostate (principal); E11.42 Type 2 diabetes mellitus with diabetic polyneuropathy; E03.9 Hypothyroidism, unspecified; E78.5 Hyperlipidemia, unspecified
CPT/HCPCS: 80061; 82043; 83036; 84439; 84481; G0103

== ENCOUNTER 2022-05-06 04:55 | Inpatient (IN) | payer MEDICARE, BC ==
[~2022-05-06] VITALS: Ht 175.3 cm; Wt 113.4 kg
[~2022-05-06 04:55] MED LIST changes: -OXYC5 PO
[2022-05-06 06:00] LABS: Base Excess Venous 5.8 mmol/L; Bicarbonate Venous 27.1 mmol/L (24.0-30.0); PCO2 Venous 60.5 mmHg (38-42); pH Blood Venous 7.33 (7.34-7.37)
[2022-05-06 06:00] LABS: Source, Urine Straight Cath
[2022-05-06 06:03] LABS: Appearance, Urine Clear (Clear); Bilirubin, Urine Neg (Neg); Blood, Urine 5+ (Neg); Color, Urine Yellow (P-Yellow); Glucose Qualitative, Urine Neg (Neg); Ketones, Urine Neg (Neg); Leukocyte Esterase, Urine 2+ (Neg); Nitrite, Urine Neg (Neg); Protein, Urine 2+ (Neg); Specific Gravity, Urine 1.015 (1.003-1.022); Urobilinogen, Urine NORM (Normal)
[2022-05-06 06:06] LABS: BASOPHILS ABSOLUTE AUTO 0.19 K/mm3 (0.00-0.23); BASOPHILS PERCENT AUTO 1 % (0-2); EOSINOPHILS ABSOLUTE AUTO 0.25 K/mm3 (0.00-0.68); EOSINOPHILS PERCENT AUTO 1 % (0-6); Hematocrit 45.3 % (37.0-53.0); Hemoglobin 14.2 g/dL (13.5-17.5); Mean Corpuscular HGB 27.1 pg (26.0-34.0); Mean Corpuscular HGB Conc 31.3 g/dL (31.5-36.5); Mean Corpuscular Volume 87 fL (80-100); Mean Platelet Volume 9.3 fL (9.1-12.4); Platelet Count 288 K/mm3 (150-400); RDW Coefficient Variation 14.3 % (11.7-14.2); RDW Standard Deviation 45.3 fL (35.1-46.3); Red Blood Cell Count 5.24 M/mm3 (4.30-5.90); White Blood Cell Count 20.13 K/mm3 (4.00-11.30)
[2022-05-06 06:07] LABS: IMMATURE GRAN ABSOLUTE AUTO 0.15 K/mm3 (0.00-0.10); IMMATURE GRAN PERCENT AUTO 1 % (0-1); LYMPHOCYTES PERCENT AUTO 28 % (21-46); MONOCYTES ABSOLUTE AUTO 1.56 K/mm3 (0.16-1.47); MONOCYTES PERCENT AUTO 8 % (4-13); NEUTROPHILS ABSOLUTE AUTO 12.38 K/mm3 (1.96-9.15); NEUTROPHILS PERCENT AUTO 62 % (41-73)
[2022-05-06] MEDS ORDERED: OXYC10TA19 PO (06:16)
[2022-05-06 06:25] LABS: Albumin, Blood 2.6 g/dL (3.4-5.0); Albumin/Globulin Ratio 0.6 (0.8-1.8); Bilirubin, Total 0.6 mg/dL (0.1-1.0); Bun/Creatinine Ratio 11.2 (12.0-20.0); Calcium, Blood 9.8 mg/dL (8.5-10.1); Creatinine, Blood 1.7 mg/dL (0.60-1.20); Globulin, Blood 4.4 g/dL (2.2-4.0); Magnesium, Blood 1.6 mg/dL (1.6-2.4); Potassium, Blood 3.7 mmol/L (3.5-5.5); Thyroid Stimulating Hormone 0.842 uIU/mL (0.360-4.800)
[2022-05-06 06:53] LABS: Influenza A, PCR NEGATIVE (NEGATIVE); Influenza B, PCR NEGATIVE (NEGATIVE); Resp Syncytial Virus, PCR NEGATIVE (NEGATIVE); SARS-Cov-2 (COVID-19) PCR, MMC NEGATIVE (NEGATIVE)
[2022-05-06 07:03] LABS: Bacteria Few /hpf; Squamous Epithelial Cells Few /hpf (Few)
--- NOTE | 2022-05-06 18:23 | NUR ---
ER ADMIT 175: RECEIVED REPORT FROM HOMA STEINER. RECEIVED PT VIA GURNEY TRANSFERRED TO BED VIA SLIDE SHEET. MADE COMFORTABLE, ORIENTED TO ROOM AND UNIT ROUTINE. CALL LIGHT ACCESSIBLE. PT CAME WITH HIS OWN HOME BIPAP MACHINE. PLACED BIPAP ON PT WITH 5 L's O2 BLEED IN. VSS. PT A&O X 3. PT HAS VARIOUS WOUNDS ON BILAT FEET. SKIN OTHERWISE INTACT, NO BRUISING, NO OPEN SKIN NOTED. PT HAS 2 BILAT AC IV's.
--- NOTE | 2022-05-07 04:30 | NUR ---
SHIFT SUMMARY ADMITTED FOR ENCEPHALOPATHY. DNR CODE. IV ANTIB RX ARE SCHEDULED. LARGE BLISTER WOUNDS ON BILAT FEET. DR. HERRERA IS PODIATRY CONSULT. ACHS CBG'S, MED SS. BIPAP FROM HOME IN USE. ADA DIET. HX OF NEUROPATHY, DM2. 1 ASSIST TO BSC. HE IS CONFUSED. HE COVERS HIS HEAD AND REFUSES TO ANSWER QUESTIONS AT TIMES. LIVES WITH HIS . 2 LARGE BM'S THIS SHIFT
[2022-05-07 05:34] LABS: BASOPHILS ABSOLUTE AUTO 0.17 K/mm3 (0.00-0.23); BASOPHILS PERCENT AUTO 1 % (0-2); EOSINOPHILS ABSOLUTE AUTO 0.29 K/mm3 (0.00-0.68); EOSINOPHILS PERCENT AUTO 2 % (0-6); Hematocrit 43.7 % (37.0-53.0); Hemoglobin 13.9 g/dL (13.5-17.5); IMMATURE GRAN ABSOLUTE AUTO 0.18 K/mm3 (0.00-0.10); IMMATURE GRAN PERCENT AUTO 1 % (0-1); LYMPHOCYTES ABSOLUTE AUTO 4.44 K/mm3 (0.84-5.20); LYMPHOCYTES PERCENT AUTO 26 % (21-46); MONOCYTES ABSOLUTE AUTO 1.59 K/mm3 (0.16-1.47); MONOCYTES PERCENT AUTO 9 % (4-13); Mean Corpuscular HGB 27.3 pg (26.0-34.0); Mean Corpuscular HGB Conc 31.8 g/dL (31.5-36.5); Mean Corpuscular Volume 86 fL (80-100); Mean Platelet Volume 8.7 fL (9.1-12.4); NEUTROPHILS ABSOLUTE AUTO 10.31 K/mm3 (1.96-9.15); NEUTROPHILS PERCENT AUTO 61 % (41-73); Platelet Count 318 K/mm3 (150-400); RDW Coefficient Variation 14.3 % (11.7-14.2); RDW Standard Deviation 44.9 fL (35.1-46.3); Red Blood Cell Count 5.09 M/mm3 (4.30-5.90); White Blood Cell Count 16.98 K/mm3 (4.00-11.30)
[2022-05-07 06:21] LABS: Bun/Creatinine Ratio 8.7 (12.0-20.0); Calcium, Blood 9.2 mg/dL (8.5-10.1); Creatinine, Blood 1.96 mg/dL (0.60-1.20); Magnesium, Blood 1.9 mg/dL (1.6-2.4); Potassium, Blood 3.9 mmol/L (3.5-5.5)
[2022-05-07 09:44] LABS: Bicarbonate Venous 25.3 mmol/L (24.0-30.0); PCO2 Venous 42.6 mmHg (38-42); pH Blood Venous 7.41 (7.34-7.37)
--- NOTE | 2022-05-07 18:42 | NUR ---
SHIFT SUMMARY PT HAS BEEN RESTING IN HIS BED WITH THE BLANKETS OVER HIS HEAD. VSS. IN TO EXAMINE WOUNDS, DRESSINGS C/D/I. DRESSINGS ON BILAT FEET CHANGED TODAY. NO BLEEDING OR PURULENT DRAINAGE NOTED. THIS EVENING HE SEEMS TO HAVE CLEARED MENTALLY.
--- NOTE | 2022-05-08 04:31 | NUR ---
SHIFT SUMMARY ADMITTED FOR AMS/UTI. DNR CODE. ANTIB RX ARE SCHEDULED. PODIATRY CONSULT IS DR. HERRERA. BILAT FEET [place], DRESSINGS IN PLACE. HOME BIPAP IN ROOM. ADA DIET. 1 ASSIST - BSC. CONFUSED, WITHDRAWN THROUGHOUT SHIFT. PAIN RX GIVEN THIS SHIFT
[2022-05-08 05:05] LABS: BASOPHILS ABSOLUTE AUTO 0.07 K/mm3 (0.00-0.23); BASOPHILS PERCENT AUTO 1 % (0-2); EOSINOPHILS ABSOLUTE AUTO 0.17 K/mm3 (0.00-0.68); EOSINOPHILS PERCENT AUTO 1 % (0-6); Hemoglobin 12.4 g/dL (13.5-17.5); IMMATURE GRAN ABSOLUTE AUTO 0.12 K/mm3 (0.00-0.10); IMMATURE GRAN PERCENT AUTO 1 % (0-1); LYMPHOCYTES ABSOLUTE AUTO 2.42 K/mm3 (0.84-5.20); LYMPHOCYTES PERCENT AUTO 19 % (21-46); MONOCYTES ABSOLUTE AUTO 0.96 K/mm3 (0.16-1.47); MONOCYTES PERCENT AUTO 8 % (4-13); Mean Corpuscular HGB 27.4 pg (26.0-34.0); Mean Corpuscular HGB Conc 31.8 g/dL (31.5-36.5); Mean Corpuscular Volume 86 fL (80-100); Mean Platelet Volume 8.8 fL (9.1-12.4); NEUTROPHILS ABSOLUTE AUTO 8.98 K/mm3 (1.96-9.15); NEUTROPHILS PERCENT AUTO 71 % (41-73); Platelet Count 312 K/mm3 (150-400); RDW Coefficient Variation 14.4 % (11.7-14.2); RDW Standard Deviation 45.3 fL (35.1-46.3); Red Blood Cell Count 4.52 M/mm3 (4.30-5.90); White Blood Cell Count 12.72 K/mm3 (4.00-11.30)
[2022-05-08 05:35] LABS: Bun/Creatinine Ratio 9.8 (12.0-20.0); Calcium, Blood 8.6 mg/dL (8.5-10.1); Creatinine, Blood 1.84 mg/dL (0.60-1.20); Potassium, Blood 4.2 mmol/L (3.5-5.5)
[2022-05-08] MEDS ORDERED: LOSA50 PO (15:55)
[2022-05-08] MEDS ORDERED: TESTOSTERONE TD (16:08)
--- NOTE | 2022-05-08 17:23 | NUR ---
SHIFT SUMMARY PT A&OX4 AND IN PLEASENT MOOD T/O SHIFT. @ BEDSIDE DURING VISITING HOURS. TOLERATING PO INTAKE WELL. BIPAP W/ 5L BLEEDIN IN PLACE T/O SHIFT. CALL LIGHT W/IN REACH. PT REFUSED HIS LASIX, STATES, "HIS LASIX @ HOME IS PRN." HANDS APPEAR PUFFY, PT PLANS TO RECIEVE LASIX W/ MORNING MEDS. VSS.
--- NOTE | 2022-05-08 19:25 | NUR ---
THE PATIENT IS AA 76 YEAR-OLD MALE WITH A DIAGNOSIS OF METABOLIC ENCEPHALOPATHY. A&OX4. PATIENT EFFECITVELY COMMUNICATES NEEDS. VSS. O2 >90%. PATIENT DONNING BIPAP /C 5L BLEED IN. NO ACUTE SIGNS OR SYMPTOMS AT THIS TIME. PAIN MEDICATED PER EMAR. CALL LIGHT WITHIN REACH. BED LOW AND LOCKED. THIS RN WILL CONTINUE TO CLOSELY MONITOR.
--- NOTE | 2022-05-08 22:12 | NUR ---
THIS RN SPOKE WITH DR. PACE AND THE PATIENT REGARDING GLARGINE 56 UNIT ADMINISTRATION FOR A CBG OF 140. DR. PACE STATED IT WAS APPROPRIATE TO GIVE THE ENTIRE DOSE, BUT ALSO APPROVED ONLY GIVING 25 UNITS. PATIENT STATED HE WANTED THE ENTIRE DOSE OF GLARGINE. EMAR REVEALS FULL DOSE OF GLARGINE WAS GIVEN FOR A CBG OF 131 TWO NIGHTS AGO. NO ISSUES REPORTED TO THIS RN. THIS RN ADMINISTERED THE 56 UNIT DOSE TO PATIENT. LIANET RAMSEY VERIFIED THIS. THIS RN WILL CONTINUE TO CLOSELY MONITOR.
--- NOTE | 2022-05-09 03:24 | NUR ---
HOME CARE ADMINISTRATOR SUMMARY THE PATIENT IS A 76 YEAR-OLD MALE WITH A DIAGNOSIS OF METABOLIC ENCEPHALOPATHY. A&OX4. PATIENT EFFECITVELY COMMUNICATES NEEDS. VSS. O2 >90% ON RA. PAIN ASSESSED AND MEDICATED PER EMAR. GUERLINE-WRAP TO BILATERAL FEET C/D/I AND MANAGED BY SALES REPRESENTATIVE METALS. NO ACUTE SIGNS OR SYMPTOMS. CALL LIGHT WITHIN REACH. THIS RN WILL CONTINUE TO CLOSELY MONITOR.
[2022-05-09] MEDS ORDERED: LEVO750 PO (11:57)
[2022-05-09] MEDS ORDERED: ASPI81CH PO (11:59)
--- NOTE | 2022-05-09 19:46 | NUR ---
SHIFT SUMMARY PTN D/C EARLY AFTERNOON. PAPERWORK COMPLETED AND GONE OVER WITH PTN. PTN TO PICK MEDICATIONS UP AT PHARMACY. PRESENT. PTN ESCORT VIA WC BY [facility]IN [facility]I TO EXIT.
== END 2022-05-09 14:01 | disposition home or self-care (01) | DRG 871 ==
LOC: ER 04:55 → ERHOLD 07:29 → MEDS 07:29 → ERHOLD 17:54 → MEDS 05-07 16:12
PROVIDERS: Student in an Organized Health Care Education/Training Program; ADMIT Student in an Organized Health Care Education/Training Program
PROC: 3E03329 Introduction of Other Anti-infective into Peripheral Vein, Percutaneous Approach (ICD-10-PCS; principal; 2022-05-07)
PROC: 5A09357 Assistance with Respiratory Ventilation, Less than 24 Consecutive Hours, Continuous Positive Airway Pressure (ICD-10-PCS; 2022-05-07)
DX: A41.9 Sepsis, unspecified organism (principal); G93.41 Metabolic encephalopathy; J96.22 Acute and chronic respiratory failure with hypercapnia; N39.0 Urinary tract infection, site not specified; E87.29 Other acidosis; R65.20 Severe sepsis without septic shock; J44.9 Chronic obstructive pulmonary disease, unspecified; Z66 Do not resuscitate; I12.9 Hypertensive chronic kidney disease with stage 1 through stage 4 chronic kidney disease, or unspecified chronic kidney disease; E03.9 Hypothyroidism, unspecified; E66.01 Morbid (severe) obesity due to excess calories; E11.65 Type 2 diabetes mellitus with hyperglycemia; E11.22 Type 2 diabetes mellitus with diabetic chronic kidney disease; G47.33 Obstructive sleep apnea (adult) (pediatric); K22.70 Barrett's esophagus without dysplasia; L97.519 Non-pressure chronic ulcer of other part of right foot with unspecified severity; L97.529 Non-pressure chronic ulcer of other part of left foot with unspecified severity; T25.222A Burn of second degree of left foot, initial encounter; T25.221A Burn of second degree of right foot, initial encounter; E11.621 Type 2 diabetes mellitus with foot ulcer; M54.9 Dorsalgia, unspecified; G89.29 Other chronic pain; N18.30 Chronic kidney disease, stage 3 unspecified; E78.5 Hyperlipidemia, unspecified; K21.9 Gastro-esophageal reflux disease without esophagitis; E11.42 Type 2 diabetes mellitus with diabetic polyneuropathy; X10.1XXA Contact with hot food, initial encounter; Z20.822 Contact with and (suspected) exposure to COVID-19; Z79.899 Other long term (current) drug therapy; Z79.82 Long term (current) use of aspirin; Z88.5 Allergy status to narcotic agent; Z79.4 Long term (current) use of insulin; Z79.52 Long term (current) use of systemic steroids; Z79.51 Long term (current) use of inhaled steroids; Z79.01 Long term (current) use of anticoagulants; Z79.2 Long term (current) use of antibiotics; Z87.19 Personal history of other diseases of the digestive system; Z99.81 Dependence on supplemental oxygen; Z98.890 Other specified postprocedural states; Z90.49 Acquired absence of other specified parts of digestive tract; Z68.36 Body mass index [BMI] 36.0-36.9, adult; Z85.47 Personal history of malignant neoplasm of testis; Z89.421 Acquired absence of other right toe(s); Z92.3 Personal history of irradiation; Z98.49 Cataract extraction status, unspecified eye
CPT/HCPCS: 0241U; 36415; 70450; 71045; 73620; 80048; 80053; 81001; 82570; 82803; 82947; 83605; 83735; 83880; 84300; 84443; 84484; 85025; 87040; 87086; 93005; 93010; 94660; 94762; 96365; 96366; 96367; 96372; 96376; 99285-25; A9270; G0378; J1650; J1815; J2405; J2543; J3370; J3475; J7030; J7050; J7512

== ENCOUNTER 2022-10-21 01:25 | Inpatient (IN) | payer MEDICARE, BC ==
[~2022-10-21] VITALS: Ht 172.7 cm; Wt 114.7 kg
[~2022-10-21 01:25] MED LIST changes: +ASPI81CH PO; +LEVO750 PO; +OXYC10TA19 PO; +TESTOSTERONE TD
[2022-10-21 02:00] LABS: Source, Urine Clean Catch
[2022-10-21 02:04] LABS: BASOPHILS ABSOLUTE AUTO 0.24 K/mm3 (0.00-0.23); BASOPHILS PERCENT AUTO 2 % (0-2); EOSINOPHILS PERCENT AUTO 2 % (0-6); Hematocrit 41.2 % (37.0-53.0); Hemoglobin 13.3 g/dL (13.5-17.5); IMMATURE GRAN ABSOLUTE AUTO 0.15 K/mm3 (0.00-0.10); IMMATURE GRAN PERCENT AUTO 1 % (0-1); LYMPHOCYTES ABSOLUTE AUTO 6.42 K/mm3 (0.84-5.20); LYMPHOCYTES PERCENT AUTO 39 % (21-46); MONOCYTES ABSOLUTE AUTO 1.45 K/mm3 (0.16-1.47); MONOCYTES PERCENT AUTO 9 % (4-13); Mean Corpuscular HGB 28.9 pg (26.0-34.0); Mean Corpuscular HGB Conc 32.3 g/dL (31.5-36.5); Mean Corpuscular Volume 89 fL (80-100); NEUTROPHILS ABSOLUTE AUTO 7.76 K/mm3 (1.96-9.15); NEUTROPHILS PERCENT AUTO 47 % (41-73); Platelet Count 232 K/mm3 (150-400); RDW Coefficient Variation 13.4 % (11.7-14.2); RDW Standard Deviation 43.6 fL (35.1-46.3); Red Blood Cell Count 4.61 M/mm3 (4.30-5.90); White Blood Cell Count 16.42 K/mm3 (4.00-11.30)
[2022-10-21 02:11] LABS: Bilirubin, Urine Neg (Neg); Blood, Urine 3+ (Neg); Glucose Qualitative, Urine Neg (Neg); Ketones, Urine Neg (Neg); Leukocyte Esterase, Urine 3+ (Neg); Nitrite, Urine Neg (Neg); Protein, Urine 2+ (Neg); Urobilinogen, Urine NORM (Normal)
[2022-10-21 02:13] LABS: Appearance, Urine Hazy (Clear); Color, Urine Pale Yellow (P-Yellow)
[2022-10-21 02:19] LABS: Albumin, Blood 2.7 g/dL (3.4-5.0); Albumin/Globulin Ratio 0.7 (0.8-1.8); Bilirubin, Total 0.7 mg/dL (0.1-1.0); Bun/Creatinine Ratio 15.6 (12.0-20.0); Creatinine, Blood 1.99 mg/dL (0.60-1.20); Potassium, Blood 5.2 mmol/L (3.5-5.5); Total Protein, Blood 6.7 g/dL (6.4-8.2)
[2022-10-21 02:23] LABS: Bacteria Mod /hpf; Red Blood Cells, Urine 0-2 /hpf (0-2); Squamous Epithelial Cells Not Seen /hpf (Few); White Blood Cells, Urine TNTC /hpf (0-5); Yeast/Fungi Urine Mod /hpf
[2022-10-21 02:50] LABS: Influenza A, PCR NEGATIVE (NEGATIVE); Influenza B, PCR NEGATIVE (NEGATIVE); Resp Syncytial Virus, PCR NEGATIVE (NEGATIVE); SARS-Cov-2 (COVID-19) PCR, MMC NEGATIVE (NEGATIVE)
[2022-10-21 03:30] LABS: Base Excess Venous -2.1 mmol/L; Bicarbonate Venous 21.8 mmol/L (24.0-30.0); PCO2 Venous 52.8 mmHg (38-42)
[2022-10-21 03:31] LABS: pH Blood Venous 7.28 (7.34-7.37)
[2022-10-21] MEDS ORDERED: PRED5 PO (05:06)
[2022-10-21 05:14] VITALS: BP 101/54
[2022-10-21 07:45] VITALS: BP 135/68
[2022-10-21 15:00] VITALS: BP 145/66
--- NOTE | 2022-10-21 17:41 | NUR ---
INCREASED CONFUSION: NOTED THAT THE PATIENT HAS INCREASED CONFUSION, INCREASED DROWSINESS, AND AN INCIDENT OF A VISUAL HALLUCINATION (THOUGHT THERE WAS A BABY AT THE END OF THE BED). PATIENT IS TAKING HIS BIPAP OFF OCCASIONALLY. PATIENT IS STILL ABLE TO ANSWER SOME QUESTIONS, BUT IS HAVING DIFFICULTY FOLLOWING DIRECTIONS. PATIENT HAS HAD SOME URINARY URGENCY (BLADDER SCAN WAS 27ML). DISCUSSED WITH DR. CARDENAS. NEW ORDERS RECEIVED. ALSO DISCUSSED WITH RT AND MADE AWARE OF THE PATIENTS CHANGE.
[2022-10-21 18:32] LABS: Base Excess Venous -3.6 mmol/L; Bicarbonate Venous 20.7 mmol/L (24.0-30.0); PCO2 Venous 53.6 mmHg (38-42); PO2 Venous 46.8 mmHg (38-42)
[2022-10-21 18:33] LABS: pH Blood Venous 7.25 (7.34-7.37)
--- NOTE | 2022-10-21 18:40 | NUR ---
SHIFT SUMMARY: PT DEMONSTRATING INCREASING CONFUSION. PT REORIENTED TO SITUATION, BED IN LOWEST POSITION AND CALL LIGHT IN REACH, BED ALARM ON. PT ON BIPAP AND CONTINUOUS BIOX. IV ACCESS WAS LOST AND PO ANTIBIOTICS WERE STARTED. NEW IV PLACED ON LEFT WRIST PATENT AND SALINE LOCKED. PT 1P ASSIST STAND AND PIVOT TO BSC FOR BOWEL MOVEMENTS. EPISODES OF CONT AND INCONT URINE THROUGH OUT SHIFT.
[2022-10-21 21:05] LABS: BASOPHILS ABSOLUTE AUTO 0.17 K/mm3 (0.00-0.23); BASOPHILS PERCENT AUTO 1 % (0-2); EOSINOPHILS ABSOLUTE AUTO 0.25 K/mm3 (0.00-0.68); EOSINOPHILS PERCENT AUTO 2 % (0-6); Hemoglobin 11.7 g/dL (13.5-17.5); IMMATURE GRAN ABSOLUTE AUTO 0.14 K/mm3 (0.00-0.10); IMMATURE GRAN PERCENT AUTO 1 % (0-1); LYMPHOCYTES ABSOLUTE AUTO 4.47 K/mm3 (0.84-5.20); LYMPHOCYTES PERCENT AUTO 32 % (21-46); MONOCYTES ABSOLUTE AUTO 1.69 K/mm3 (0.16-1.47); MONOCYTES PERCENT AUTO 12 % (4-13); Mean Corpuscular HGB Conc 31.6 g/dL (31.5-36.5); Mean Corpuscular Volume 89 fL (80-100); Mean Platelet Volume 8.2 fL (9.1-12.4); NEUTROPHILS ABSOLUTE AUTO 7.28 K/mm3 (1.96-9.15); NEUTROPHILS PERCENT AUTO 52 % (41-73); Platelet Count 225 K/mm3 (150-400); RDW Coefficient Variation 13.3 % (11.7-14.2); RDW Standard Deviation 43.5 fL (35.1-46.3); Red Blood Cell Count 4.18 M/mm3 (4.30-5.90)
[2022-10-21 21:20] LABS: Bun/Creatinine Ratio 12.3 (12.0-20.0); Creatinine, Blood 2.11 mg/dL (0.60-1.20)
[2022-10-21 21:23] VITALS: BP 106/71
[2022-10-22 03:24] VITALS: BP 147/59
--- NOTE | 2022-10-22 03:48 | NUR ---
LONG CONVERSATION WITH RESIDENT DR. MÁRQUEZ EARLY IN SHIFT. PER SHIFT REPORT, PT WAS COMPLETELY ALERT AND ORIENTED EARLY IN THEIR SHIFT AND OVER THE COURSE OF THE DAY BECAME PROGRESSIVELY MORE CONFUSED. RESIDENT NOTIFIED. DISCUSSED BIPAP SETTING INCLUDING IPAP V EPAP, UPDATED VBG VALUES, LACK OF SLEEP OVER DAY, ETC. LR RUNNING THROUGHOUT SHIFT. PT ADMITTED FOR UROSEPSIS AND HAS BEEN RECEIVING ABX FOR THIS. I HAVE THUS FAR BEEN UNABLE TO THOROUGHLY REVIEW CHART BUT CONVERSATION WITH ADULT AND PEDIATRIC NEUROLOGIST KENDELL PLAZA DURING WHICH SHE TOLD ME THAT PT WAS BROUGHT IN [facility] AND WAS HAVING ALTERED MENTATION AT THAT TIME WELL. PT MENTATION IS UNCHANGED THROUGHOUT THIS SHIFT AND SOMEWHAT DIFFICULT TO ASSESS DUE TO PT NOT ANSWERING ALL OF MY QUESTIONS AND IGNORING MANY OF THEM. UNABLE TO ADEQUATELY MAKE NEEDS KNOWN AND IS NOT ALWAYS COOPERATIVE WITH CARE. DESPITE THIS, HAS KEPT BIPAP ON THROUGH MOST OF NIGHT ONLY VERY SPORADICALLY PULLING IT OFF BUT ALWAYS ALLOWS ME TO PUT IT BACK ON HIM. TELE ON AND RUNNING TACHYCARDIC THROUGH MOST OF SHIFT WITH NO EVENTS NOTED. CONTINENT/INCONTINENT WITH 3 BRIEF CHANGES THUS FAR THIS SHIFT. PRN PAIN MEDICATION ADMINISTERED ONE TIME THUS FAR. BED IS LOCKED IN LOWEST POSITION WITH BED ALARM ON. CALL LIGHT LEFT WITHIN REACH. WILL CONTINUE TO MONITOR.
[2022-10-22 05:04] LABS: Hematocrit 35.8 % (37.0-53.0); Hemoglobin 11.5 g/dL (13.5-17.5); Mean Corpuscular HGB 28.4 pg (26.0-34.0); Mean Corpuscular HGB Conc 32.1 g/dL (31.5-36.5); Mean Corpuscular Volume 88 fL (80-100); Mean Platelet Volume 8.3 fL (9.1-12.4); Platelet Count 212 K/mm3 (150-400); RDW Coefficient Variation 13.2 % (11.7-14.2); Red Blood Cell Count 4.05 M/mm3 (4.30-5.90); White Blood Cell Count 15.31 K/mm3 (4.00-11.30)
[2022-10-22 05:53] LABS: BAND PERCENT MAN 1 % (0-8); BASOPHILS ABSOLUTE MAN 0.15 K/mm3 (0.00-0.23); BASOPHILS PERCENT MAN 1 % (0-2); EOSINOPHILS PERCENT MAN 2 % (0-6); LYMPHOCYTES % ATYPICAL MANUAL 1 % (0-0); LYMPHOCYTES ABSOLUTE MAN 3.52 K/mm3 (0.84-5.20); LYMPHOCYTES PERCENT MAN 22 % (21-46); MONOCYTES ABSOLUTE MAN 1.53 K/mm3 (0.16-1.47); MONOCYTES PERCENT MAN 10 % (4-13); NEUTROPHILS ABSOLUTE MAN 9.79 K/mm3 (1.96-9.15); SEG NEUTROPHILS PERCENT MAN 63 % (41-73); TOTAL CELLS COUNTED 100
[2022-10-22 06:05] LABS: Albumin, Blood 2.2 g/dL (3.4-5.0); Albumin/Globulin Ratio 0.6 (0.8-1.8); Bilirubin, Total 0.5 mg/dL (0.1-1.0); Bun/Creatinine Ratio 11.7 (12.0-20.0); Calcium, Blood 8.1 mg/dL (8.5-10.1); Creatinine, Blood 2.05 mg/dL (0.60-1.20); Globulin, Blood 3.5 g/dL (2.2-4.0); Potassium, Blood 4.3 mmol/L (3.5-5.5); Total Protein, Blood 5.7 g/dL (6.4-8.2)
[2022-10-22 07:31] VITALS: BP 110/54
[2022-10-22] MEDS ORDERED: ANDRODERM1 EAC3 TD (08:31)
[2022-10-22 12:34] LABS: Base Excess Venous -5.8 mmol/L; PCO2 Venous 39.3 mmHg (38-42); pH Blood Venous 7.32 (7.34-7.37)
[2022-10-22 15:24] VITALS: BP 137/68
--- NOTE | 2022-10-22 17:42 | NUR ---
END OF SHIFT SUMMARY PT ON BIPAP CONTINOUSLY, STATS AROUND 90. OCCASIONLY WOULD TAKE BIPAP OFF AND STATS WOULD FALL TO 85-86. PT HAS SOME SOUTUM OR SPIT AND FREQUENTLY SPITS IN A BAG AND TAKES OFF THE BIPAP. PT ON BIPAP CONTINOUSLY AT HOME. PT SOMNOLENT, WITHDRAWN, AND CAN BECOME BOTHERED AND AGITATED WITH CARE. PT CONTINENT/INCONTINENT AND FREQUENTLY HAS TO URINATE BUT NOTHING COMES OUT. DID BLADDER SCAN ON PT AND SHOWED ONLY 30 ML OF URINE. PT REFUSING TO EAT ANY MEALS TODAY. PT HAD SOME NAUSEA AND PAIN, TREATED PER JUL. AT BEDSIDE MOST OF THE DAY. PT ON TELE SINUS RHYTHM 89. BED ALARM IN PLACE AND BED IN LOWEST POSITION.
[2022-10-23 03:23] VITALS: BP 144/74
[2022-10-23 05:07] LABS: BASOPHILS ABSOLUTE AUTO 0.06 K/mm3 (0.00-0.23); BASOPHILS PERCENT AUTO 1 % (0-2); EOSINOPHILS ABSOLUTE AUTO 0.18 K/mm3 (0.00-0.68); EOSINOPHILS PERCENT AUTO 2 % (0-6); Hemoglobin 10.8 g/dL (13.5-17.5); IMMATURE GRAN ABSOLUTE AUTO 0.07 K/mm3 (0.00-0.10); IMMATURE GRAN PERCENT AUTO 1 % (0-1); LYMPHOCYTES ABSOLUTE AUTO 2.14 K/mm3 (0.84-5.20); LYMPHOCYTES PERCENT AUTO 21 % (21-46); MONOCYTES ABSOLUTE AUTO 0.87 K/mm3 (0.16-1.47); MONOCYTES PERCENT AUTO 9 % (4-13); Mean Corpuscular HGB 28.9 pg (26.0-34.0); Mean Corpuscular HGB Conc 32.7 g/dL (31.5-36.5); Mean Corpuscular Volume 88 fL (80-100); Mean Platelet Volume 8.7 fL (9.1-12.4); NEUTROPHILS ABSOLUTE AUTO 6.94 K/mm3 (1.96-9.15); NEUTROPHILS PERCENT AUTO 68 % (41-73); Platelet Count 222 K/mm3 (150-400); RDW Coefficient Variation 13.4 % (11.7-14.2); Red Blood Cell Count 3.74 M/mm3 (4.30-5.90); White Blood Cell Count 10.26 K/mm3 (4.00-11.30)
[2022-10-23 05:37] LABS: Albumin/Globulin Ratio 0.6 (0.8-1.8); Bilirubin, Total 0.4 mg/dL (0.1-1.0); Bun/Creatinine Ratio 11.8 (12.0-20.0); Calcium, Blood 7.9 mg/dL (8.5-10.1); Creatinine, Blood 1.95 mg/dL (0.60-1.20); Globulin, Blood 3.5 g/dL (2.2-4.0); Potassium, Blood 4.5 mmol/L (3.5-5.5); Total Protein, Blood 5.5 g/dL (6.4-8.2)
[2022-10-23 08:01] VITALS: BP 136/61
--- NOTE | 2022-10-23 13:57 | NUR ---
WOUND CARE WOUND PHOTOS AND ASSESSMENT IN HARD CHART. PT WITH SCATTERED ABRASIONS ON BLE THIS APPEARS TO THIS RN TO BE FROM SCRATCHING. PT AND BOTH REPORT CHRONIC PURITIS. PT WITH HEALING AND HEALED PI TO BLE FEET AND TOES A&D TO BLE. BORDERED FOAM TO L FOOT AND R THIRD TOE. FLOAT HEALS
[2022-10-23 14:57] VITALS: BP 106/61
--- NOTE | 2022-10-23 16:21 | NUR ---
PATIENT MUCH MORE ALERT TODAY AND ORIENTED X4. TATE AT BEDSIDE THROUGHOUT THE DAY. VSS, ON 5L O2 VIA NC OR BIPAP WITH 5LO2 BLEED IN. IV WAS D/C'D TODAY AND PATIENT SWITCHED TO ORAL ANTIBIOTICS. WOUND CARE NURSE AT BEDSIDE AND DRESSED WOUND TO L FOOT. OXYCODONE GIVEN X2 TODAY FOR CHRONIC BACK PAIN. TELEMETRY D/C'D. PATIENT IRRITABLE AT TIMES AND UNWILLING TO GET UP TO CHAIR OR SIT UP HIGH WHEN HE EATS HIS MEALS. APPETITE IMPROVED TODAY. INCONTINENT OF URINE. FALL PRECAUTIONS IN PLACE.
[2022-10-23 21:15] VITALS: BP 120/75
--- NOTE | 2022-10-24 04:37 | NUR ---
SHIFT SUMMARY: PT A&O X4. PT SOMEWHAT COOPERATIVE WITH CARE. PT APPEARS TO GET FRUSTRATED EASILY. PT USED BIPAP DURING THE EVENING W/ 5L BLEED IN. PT C/O 8-01/26 PAIN THIS SHIFT. MEDICATED PER EMAR. NO IV ACCESS IN PLACE. PT REQUESTED PEPTO BISMOL TABS FOR STOMACH PAIN. PT UPSET WHEN LIQUID FORM WAS BROUGHT IN AND REFUSED. PT STATED "CALL THE DOCTOR BACK AND TELL HIM WHAT I WANT." PT RECEIVED ONE TIME DOSE OF TABLETS AND HAS PRN LIQUID PEPTO IF NEEDED. PT MEDICATED PER EMAR FOR HYPERGLYCEMIA. WOUND ON L. FOOT CHANGED BY WOUND RN DAY SHIFT. CALL LIGHT IN REACH. BED IN LOWEST POSITION. WILL CONTINUE TO MONITOR.
[2022-10-24 05:42] LABS: BASOPHILS ABSOLUTE AUTO 0.05 K/mm3 (0.00-0.23); BASOPHILS PERCENT AUTO 1 % (0-2); EOSINOPHILS ABSOLUTE AUTO 0.26 K/mm3 (0.00-0.68); EOSINOPHILS PERCENT AUTO 3 % (0-6); Hematocrit 32.8 % (37.0-53.0); Hemoglobin 10.3 g/dL (13.5-17.5); IMMATURE GRAN ABSOLUTE AUTO 0.05 K/mm3 (0.00-0.10); IMMATURE GRAN PERCENT AUTO 1 % (0-1); LYMPHOCYTES ABSOLUTE AUTO 2.78 K/mm3 (0.84-5.20); LYMPHOCYTES PERCENT AUTO 27 % (21-46); MONOCYTES ABSOLUTE AUTO 0.69 K/mm3 (0.16-1.47); MONOCYTES PERCENT AUTO 7 % (4-13); Mean Corpuscular HGB 28.1 pg (26.0-34.0); Mean Corpuscular HGB Conc 31.4 g/dL (31.5-36.5); Mean Corpuscular Volume 90 fL (80-100); Mean Platelet Volume 8.9 fL (9.1-12.4); NEUTROPHILS ABSOLUTE AUTO 6.67 K/mm3 (1.96-9.15); NEUTROPHILS PERCENT AUTO 63 % (41-73); Platelet Count 246 K/mm3 (150-400); RDW Coefficient Variation 13.4 % (11.7-14.2); RDW Standard Deviation 44.2 fL (35.1-46.3); Red Blood Cell Count 3.66 M/mm3 (4.30-5.90)
[2022-10-24 06:17] LABS: Albumin/Globulin Ratio 0.5 (0.8-1.8); Bilirubin, Total 0.3 mg/dL (0.1-1.0); Bun/Creatinine Ratio 10.9 (12.0-20.0); Calcium, Blood 8.1 mg/dL (8.5-10.1); Creatinine, Blood 1.83 mg/dL (0.60-1.20); Globulin, Blood 3.7 g/dL (2.2-4.0); Potassium, Blood 4.2 mmol/L (3.5-5.5); Total Protein, Blood 5.7 g/dL (6.4-8.2)
[2022-10-24 06:19] VITALS: BP 143/74
[2022-10-24 08:28] VITALS: BP 129/75
[2022-10-24 11:14] LABS: Hematocrit 31.3 % (37.0-53.0)
[2022-10-24] MEDS ORDERED: INSULIN GL100 UNIT/2 SC (12:41)
[2022-10-24] MEDS ORDERED: HUMALOG KW100 UNIT/1 SC (12:47)
[2022-10-24] MEDS ORDERED: AMOCLA875 PO (12:50)
[2022-10-24] MEDS ORDERED: VISBIOME 112.51 EACH PO (12:51)
--- NOTE | 2022-10-24 17:04 | NUR ---
NO ACUTE CHANGES THIS SHIFT. PATIENT DID WORK WITH PT AND AMBULATED WITH FWW AND 1 ASSIST TO THE RESTROOM. REFUSED TO GET UP TO CHAIR FOR MEALS. TOLERATING ADA DIET, ACHS BLOOD SUGARS. OXYCODONE GIVEN X1 TO TREAT BACK PAIN. VSS, ON 5LO2 VIA NC OR BPAP WHILE ASLEEP. TATE AT BEDSIDE THROUGHOUT THE DAY. NO NEW CONCERNS THIS SHIFT.
[2022-10-24 17:08] VITALS: BP 140/88
[2022-10-24 20:05] VITALS: BP 113/70
[2022-10-25 02:20] VITALS: BP 148/82
--- NOTE | 2022-10-25 03:59 | NUR ---
SHIFT SUMMARY NO ACUTE CHANGES THIS SHIFT. AXO. NO TELE. VSS. ON HOME BIPAP T/O SHIFT W/OUT INCIDENT. PT HAS NOT HAD ANY DIARRHEA EPISODE THIS SHIFT. PT CONTINENT, URINE CONTINUES TO BE DARK IN COLOR AND FOUL SMELLING. WOUNDS TO BILAT FEET COVERED. PT INDEPENDENTLY TURNING SELF. EGG CRATE ON BED FOR PROPHYLAXIS. RESTING FOR MAJORITY OF SHIFT.
[2022-10-25 06:10] LABS: Albumin, Blood 2.1 g/dL (3.4-5.0); Albumin/Globulin Ratio 0.6 (0.8-1.8); Bilirubin, Total 0.2 mg/dL (0.1-1.0); Bun/Creatinine Ratio 11.4 (12.0-20.0); Calcium, Blood 8.1 mg/dL (8.5-10.1); Creatinine, Blood 1.49 mg/dL (0.60-1.20); Globulin, Blood 3.4 g/dL (2.2-4.0); Potassium, Blood 4.1 mmol/L (3.5-5.5); Total Protein, Blood 5.5 g/dL (6.4-8.2)
[2022-10-25 07:02] LABS: BASOPHILS ABSOLUTE AUTO 0.08 K/mm3 (0.00-0.23); BASOPHILS PERCENT AUTO 1 % (0-2); EOSINOPHILS ABSOLUTE AUTO 0.35 K/mm3 (0.00-0.68); EOSINOPHILS PERCENT AUTO 4 % (0-6); Hemoglobin 10.2 g/dL (13.5-17.5); IMMATURE GRAN ABSOLUTE AUTO 0.06 K/mm3 (0.00-0.10); IMMATURE GRAN PERCENT AUTO 1 % (0-1); LYMPHOCYTES ABSOLUTE AUTO 2.42 K/mm3 (0.84-5.20); LYMPHOCYTES PERCENT AUTO 30 % (21-46); MONOCYTES ABSOLUTE AUTO 0.75 K/mm3 (0.16-1.47); MONOCYTES PERCENT AUTO 9 % (4-13); Mean Corpuscular HGB 28.1 pg (26.0-34.0); Mean Corpuscular HGB Conc 31.9 g/dL (31.5-36.5); Mean Corpuscular Volume 88 fL (80-100); Mean Platelet Volume 8.4 fL (9.1-12.4); NEUTROPHILS ABSOLUTE AUTO 4.33 K/mm3 (1.96-9.15); NEUTROPHILS PERCENT AUTO 54 % (41-73); Platelet Count 224 K/mm3 (150-400); RDW Coefficient Variation 13.2 % (11.7-14.2); RDW Standard Deviation 42.6 fL (35.1-46.3); Red Blood Cell Count 3.63 M/mm3 (4.30-5.90); White Blood Cell Count 7.99 K/mm3 (4.00-11.30)
[2022-10-25 07:53] VITALS: BP 157/82
== END 2022-10-25 12:40 | disposition home health service (06) | DRG 871 ==
LOC: ER 01:25 → MEDS 01:26 → ENPENDDIS 10-25 11:08 → MEDS 10-25 12:40
PROVIDERS: Emergency Medicine; Family Medicine; Hospitalist; Internal Medicine; ADMIT Student in an Organized Health Care Education/Training Program
PROC: 5A09357 Assistance with Respiratory Ventilation, Less than 24 Consecutive Hours, Continuous Positive Airway Pressure (ICD-10-PCS; principal; 2022-10-21)
PROC: 3E03329 Introduction of Other Anti-infective into Peripheral Vein, Percutaneous Approach (ICD-10-PCS; 2022-10-21)
DX: A41.9 Sepsis, unspecified organism (principal); G92.8 Other toxic encephalopathy; J18.9 Pneumonia, unspecified organism; J96.22 Acute and chronic respiratory failure with hypercapnia; J96.21 Acute and chronic respiratory failure with hypoxia; J44.0 Chronic obstructive pulmonary disease with (acute) lower respiratory infection; E87.4 Mixed disorder of acid-base balance; E87.1 Hypo-osmolality and hyponatremia; N17.9 Acute kidney failure, unspecified; J90 Pleural effusion, not elsewhere classified; N12 Tubulo-interstitial nephritis, not specified as acute or chronic; Z66 Do not resuscitate; R65.20 Severe sepsis without septic shock; M54.9 Dorsalgia, unspecified; G89.29 Other chronic pain; N18.9 Chronic kidney disease, unspecified; S91.302A Unspecified open wound, left foot, initial encounter; S91.301A Unspecified open wound, right foot, initial encounter; E86.0 Dehydration; E03.9 Hypothyroidism, unspecified; G47.30 Sleep apnea, unspecified; E11.65 Type 2 diabetes mellitus with hyperglycemia; I12.9 Hypertensive chronic kidney disease with stage 1 through stage 4 chronic kidney disease, or unspecified chronic kidney disease; E78.5 Hyperlipidemia, unspecified; E11.22 Type 2 diabetes mellitus with diabetic chronic kidney disease; F99 Mental disorder, not otherwise specified; Z20.822 Contact with and (suspected) exposure to COVID-19; B96.89 Other specified bacterial agents as the cause of diseases classified elsewhere; Z88.5 Allergy status to narcotic agent; Z79.899 Other long term (current) drug therapy; Z79.4 Long term (current) use of insulin; Z79.51 Long term (current) use of inhaled steroids; Z98.890 Other specified postprocedural states; Z79.52 Long term (current) use of systemic steroids; Z79.2 Long term (current) use of antibiotics; Z79.891 Long term (current) use of opiate analgesic; Z79.82 Long term (current) use of aspirin; Z87.19 Personal history of other diseases of the digestive system; Z99.89 Dependence on other enabling machines and devices; Z85.47 Personal history of malignant neoplasm of testis; Z90.49 Acquired absence of other specified parts of digestive tract; Z90.89 Acquired absence of other organs; Z89.421 Acquired absence of other right toe(s); Z87.440 Personal history of urinary (tract) infections
CPT/HCPCS: 0241U; 36415; 71045; 71046; 80048; 80053; 81001; 82803; 82947; 83605; 83690; 84145; 85014; 85018; 85025; 87040; 87086; 94660; 94762; 96365; 96375; 97110; 97116; 97162; 99285-25; A9270; G0378; J0456; J0696; J1650; J1815; J2405; J7030; J7050; J7120; J7512

== ENCOUNTER 2023-03-12 15:11 | Emergency (ER) | payer MEDICARE, BC ==
[~2023-03-12] VITALS: Ht 177.8 cm; Wt 104.3 kg
[~2023-03-12 15:11] MED LIST changes: +HUMALOG KW100 UNIT/1 SC; +INSULIN GL100 UNIT/2 SC; +VISBIOME 112.51 EACH PO
[2023-03-12 15:53] LABS: BASOPHILS ABSOLUTE AUTO 0.18 K/mm3 (0.00-0.23); BASOPHILS PERCENT AUTO 1 % (0-2); EOSINOPHILS ABSOLUTE AUTO 0.24 K/mm3 (0.00-0.68); EOSINOPHILS PERCENT AUTO 2 % (0-6); Hematocrit 41.4 % (37.0-53.0); Hemoglobin 13.4 g/dL (13.5-17.5); IMMATURE GRAN ABSOLUTE AUTO 0.16 K/mm3 (0.00-0.10); IMMATURE GRAN PERCENT AUTO 1 % (0-1); LYMPHOCYTES ABSOLUTE AUTO 6.46 K/mm3 (0.84-5.20); LYMPHOCYTES PERCENT AUTO 41 % (21-46); MONOCYTES ABSOLUTE AUTO 0.99 K/mm3 (0.16-1.47); MONOCYTES PERCENT AUTO 6 % (4-13); Mean Corpuscular HGB 28.5 pg (26.0-34.0); Mean Corpuscular HGB Conc 32.4 g/dL (31.5-36.5); Mean Corpuscular Volume 88 fL (80-100); Mean Platelet Volume 8.4 fL (9.1-12.4); NEUTROPHILS ABSOLUTE AUTO 7.56 K/mm3 (1.96-9.15); NEUTROPHILS PERCENT AUTO 49 % (41-73); Platelet Count 293 K/mm3 (150-400); RDW Coefficient Variation 13.4 % (11.7-14.2); RDW Standard Deviation 43.1 fL (35.1-46.3); Red Blood Cell Count 4.71 M/mm3 (4.30-5.90); White Blood Cell Count 15.59 K/mm3 (4.00-11.30)
[2023-03-12 16:18] LABS: Albumin, Blood 2.6 g/dL (3.4-5.0); Albumin/Globulin Ratio 0.6 (0.8-1.8); Bilirubin, Total 0.1 mg/dL (0.1-1.0); Bun/Creatinine Ratio 16.9 (12.0-20.0); Calcium, Blood 9.1 mg/dL (8.5-10.1); Creatinine, Blood 1.72 mg/dL (0.60-1.20); Globulin, Blood 4.1 g/dL (2.2-4.0); Potassium, Blood 3.9 mmol/L (3.5-5.5); Total Protein, Blood 6.7 g/dL (6.4-8.2)
[2023-03-12 18:30] VITALS: BP 107/49
== END 2023-03-12 18:45 | disposition home or self-care (01) ==
LOC: ER 15:11
PROVIDERS: Physician Assistant
DX: I95.9 Hypotension, unspecified (principal); D72.829 Elevated white blood cell count, unspecified; I10 Essential (primary) hypertension; E78.5 Hyperlipidemia, unspecified; E11.9 Type 2 diabetes mellitus without complications; Z79.890 Hormone replacement therapy; Z79.899 Other long term (current) drug therapy; Z79.82 Long term (current) use of aspirin; Z79.52 Long term (current) use of systemic steroids; Z79.4 Long term (current) use of insulin; Z87.891 Personal history of nicotine dependence
CPT/HCPCS: 71046; 80053; 85025; 96360; 99285-25; J7030